=== PATIENT | female | born 1995 | race Caucasian/White ===

== ENCOUNTER 2016-10-31 20:28 | Emergency (ER) | payer BC ==
[~2016-10-31] VITALS: Ht 154.9 cm; Wt 68.5 kg
[~2016-10-31 20:28] MED LIST: ALBU1AER9 INH; MONT1TAB5 PO; NORE-37 PO
[2016-10-31 20:31] VITALS: Ht 154.9 cm; Wt 68.5 kg
[2016-10-31] MEDS ORDERED: ALBUT/IPRATROP 3MG/0.5MG NEB 3 ML VIAL INH STA (20:43)
[2016-10-31] MEDS ORDERED: DEXAMETHASONE SOD INJ 10 MG/ML VIAL IV ONE (20:45)
[2016-10-31] MEDS ORDERED: OPTIRAY 320 IV PRN (21:00)
[2016-10-31] MEDS ORDERED: CLX/20 PO (21:01)
[2016-10-31 21:11] VITALS: O2SAT 100
[2016-10-31 21:20] LABS: BASO % 0.3 %; BASO ABS # 0.02 K/uL (0-0.2); COMPLETE YES; EOS % 6.7 %; HEMATOCRIT 39.6 % (37-47); IG% 0.1 %; LYMPH % 37.9 %; LYMPH ABS # 2.72 K/uL (1.2-3.4); MEAN CELL VOLUME 86.1 fL (80-100); MEAN CORPUSCULAR HGB CONC 34.8 g/dl (32-36); MEAN PLATELET VOLUME 9.7 fL (7.4-10.4); MONO % 11.6 %; NEUT % 43.4 %; PLATELET COUNT 286 K/uL (130-400); WHITE BLOOD COUNT 7.18 K/uL (4.8-10.8)
[2016-10-31 21:40] LABS: ALT/SGPT 18 U/L (12-78); BLOOD UREA NITROGEN 12 mg/dl (7-18); BUN/CREATININE RATIO 12.2 (10-20); CALCIUM 8.8 mg/dl (8.5-10.1); CARBON DIOXIDE 26 mmol/L (21-32); CHLORIDE 107 mmol/L (98-107); GLUCOSE 75 mg/dl (70-99); POTASSIUM 3.7 mmol/L (3.5-5.1); SODIUM 142 mmol/L (136-145)
[2016-10-31 21:45] LABS: ALKALINE PHOSPHATASE 55 U/L (45-117); AST/SGOT 12 U/L (15-37); CKMB/CK RATIO 1.7 (0-3.0)
[2016-10-31 21:48] LABS: PREG INTERNAL NEGATIVE QC NEG CLEAR BACKGROUND; PREG INTERNAL POSITIVE QC POS CONTROL LINE
--- NOTE | 2016-10-31 22:11 | DIAGNOSTIC IMAGING REPORT ---
CT ANGIOGRAM OF THE CHEST CLINICAL HISTORY: Chest pain and shortness of breath COMPARISON STUDY: Chest x-ray dated 10/24/2014 TECHNIQUE: Following the IV administration of 93 mL of Optiray-320, CT angiogram of the thorax was performed from the thoracic inlet to the lung bases utilizing the pulmonary embolus protocol. Images are reviewed in the axial, sagittal, and coronal planes. IV contrast was administered without complication. MIP imaging was performed. CT DOSE: 175.22 mGy.cm FINDINGS: No pathologically enlarged axillary mediastinal or hilar lymph nodes were visualized. There was no evidence of thoracic aortic dilatation. There were no pulmonary artery filling defects to indicate acute pulmonary embolism. No pleural effusions are visualized. There is slight mosaic attenuation of the lower lobe suggesting an element of air trapping. There are no areas of consolidation suspicious for pneumonia. IMPRESSION: 1. No CT evidence of acute pulmonary embolism 2. Areas of mosaic attenuation within the lower lobes suggesting air trapping Electronically signed by: Shan Carroll M.D. 10/31/2016 10:09 PM Dictated Date/Time: 10/31/2016 10:06 PM
[2016-10-31] MEDS ORDERED: PRED50TA PO (22:38)
[2016-10-31 22:57] VITALS: BP 119/60; PULSE 81; TEMP 36.7; O2SAT 100
--- NOTE | 2016-10-31 23:11 | EMERGENCY ROOM VISIT NOTE ---
History Report prepared by Juan: Juvencio Jacobsen Under the Supervision of: Dr. Kirt Barcenas M.D. First contact with patient: 20:34 Chief Complaint: RESPIRATORY PROBLEMS Stated Complaint: MOUTH SORENESS, SOB, COUGHING, BURNING IN CHEST History of Present Illness The patient is a 20 year old female who presents to the Emergency Room with complaints of persistent respiratory problems beginning a few weeks ago. She notes having a history of asthma, but that her current respiratory problems do not feel like her asthma. She was seen at [facility] 3 times and was told it was a flare up of her asthma. She has been treated with a z-pack and a prednisone taper. She notes they did not find anything by x-ray. The patient notes she has a nebulizer at home. She notes having jaw pain, a sore throat, chest pains with a cough, wheezing and adds that she is tasting blood with her cough. The patient has had pneumonia before, and notes that the chest pain and other symptoms is similar to when she has had pneumonia before. The patient has had a history of a tonsillectomy and wisdom teeth removal. Her last menstrual period was normal and was 3 weeks ago. She takes Citalopram and is on control. Pt denies LOC, headache, fevers, chills, diaphoresis, visual changes, neck pain , nausea, vomiting, abdominal pain, back pain, melena, hematochezia, urinary symptoms, numbness, weakness, lymphadenopathy, rash, or other complaints. Review of Systems See HPI for pertinent positives and negatives. A total of ten systems were reviewed and were otherwise negative. Past Medical & Surgical Medical Problems: (1) Asthma Surgical Problems: (1) Hx of wisdom tooth extraction Family History Cancer Diabetes mellitus Heart disease Hypertension Kidney disease or stones Lung disease Seizures Social History Smoking Status: Never Smoker Alcohol Use: none Marital Status: single Housing Status: lives with family Occupation Status: student Current/Historical Medications Scheduled Control Pills ( Control Pills), 1 TAB PO DAILY Citalopram (Citalopram Hydrobromide), 10 MG PO DAILY Mometasone Furoate-Formoterol (Dulera 100/5 Mcg), 1 AER INH BID Montelukast Sodium (Montelukast Sodium), 10 MG PO DAILY Prednisone (Prednisone), 50 MG PO DAILY Scheduled PRN Albuterol (Proair Hfa), 2 PUFF INH Q4 PRN for Shortness of Breath Allergies Coded Allergies: Sumatriptan (Verified Allergy, Severe, LIGHT HEADED/TIGHT THROAT, 10/31/16) Physical Exam Vital Signs Date Time Temp Pulse Resp B/P Pulse Ox O2 Delivery O2 Flow Rate FiO2 10/31/16 21:31 119/60 10/31/16 21:28 81 14 100 10/31/16 21:17 83 10/31/16 21:13 78 20 131/65 100 Room Air 10/31/16 21:11 100 Room Air 10/31/16 21:11 100 Room Air 10/31/16 21:10 131/65 10/31/16 20:40 100 Room Air 10/31/16 20:31 36.7 73 20 121/80 100 Room Air Physical Exam GENERAL: Awake, alert, well-appearing, in no distress HENT: Normocephalic, atraumatic. Oropharynx unremarkable. EYES: Normal conjunctiva. Sclera non-icteric. NECK: Supple. No nuchal rigidity. FROM. No JVD. RESPIRATORY: Expiratory wheezing. Breath sounds equal. CARDIAC: Regular rate, normal rhythm. Extremities warm and well perfused. Pulses equal. ABDOMEN: Soft, non-distended. No tenderness to palpation. No rebound or guarding. No masses. RECTAL: Deferred. MUSCULOSKELETAL: Chest examination reveals no tenderness. The back is symmetrical on inspection without obvious abnormality. There is no CVA tenderness to palpation. No joint edema. LOWER EXTREMITIES: Calves are equal size bilaterally and non-tender. No edema. No discoloration. NEURO: Normal sensorium. No sensory or motor deficits noted. SKIN: No rash or jaundice noted. Medical Decision & Procedures ER Provider Diagnostic Interpretation: Radiology results as stated below per my review and radiologist interpretation CT ANGIOGRAM OF THE CHEST CLINICAL HISTORY: Chest pain and shortness of breath COMPARISON STUDY: Chest x-ray dated 10/24/2014 TECHNIQUE: Following the IV administration of 93 mL of Optiray-320, CT angiogram of the thorax was performed from the thoracic inlet to the lung bases utilizing the pulmonary embolus protocol. Images are reviewed in the axial, sagittal, and coronal planes. IV contrast was administered without complication. MIP imaging was performed. CT DOSE: 175.22 mGy.cm FINDINGS: No pathologically enlarged axillary mediastinal or hilar lymph nodes were visualized. There was no evidence of thoracic aortic dilatation. There were no pulmonary artery filling defects to indicate acute pulmonary embolism. No pleural effusions are visualized. There is slight mosaic attenuation of the lower lobe suggesting an element of air trapping. There are no areas of consolidation suspicious for pneumonia. IMPRESSION: 1. No CT evidence of acute pulmonary embolism 2. Areas of mosaic attenuation within the lower lobes suggesting air trapping Electronically signed by: Shan Carroll M.D. 10/31/2016 10:09 PM Dictated Date/Time: 10/31/2016 10:06 PM Laboratory Results 10/31/16 21:00 Red Blood Count 4.60, Mean Corpuscular Volume 86.1, Mean Corpuscular Hemoglobin 30.0, Mean Corpuscular Hemoglobin Concent 34.8, Mean Platelet Volume 9.7, Neutrophils (%) (Auto) 43.4, Lymphocytes (%) (Auto) 37.9, Monocytes (%) (Auto) 11.6, Eosinophils (%) (Auto) 6.7, Basophils (%) (Auto) 0.3, Neutrophils # (Auto ) 3.12, Lymphocytes # (Auto) 2.72, Monocytes # (Auto) 0.83, Eosinophils # (Auto ) 0.48, Basophils # (Auto) 0.02 10/31/16 21:00 Test 10/31/16 21:00 White Blood Count 7.18 K/uL (4.8-10.8) Red Blood Count 4.60 M/uL (4.2-5.4) Hemoglobin 13.8 g/dL (12.0-16.0) Hematocrit 39.6 % (37-47) Mean Corpuscular Volume 86.1 fL (80-100) Mean Corpuscular Hemoglobin 30.0 pg (25-34) Mean Corpuscular Hemoglobin Concent 34.8 g/dl (32-36) Platelet Count 286 K/uL (130-400) Mean Platelet Volume 9.7 fL (7.4-10.4) Neutrophils (%) (Auto) 43.4 % Lymphocytes (%) (Auto) 37.9 % Monocytes (%) (Auto) 11.6 % Eosinophils (%) (Auto) 6.7 % Basophils (%) (Auto) 0.3 % Neutrophils # (Auto) 3.12 K/uL (1.4-6.5) Lymphocytes # (Auto) 2.72 K/uL (1.2-3.4) Monocytes # (Auto) 0.83 K/uL (0.11-0.59) Eosinophils # (Auto) 0.48 K/uL (0-0.5) Basophils # (Auto) 0.02 K/uL (0-0.2) RDW Standard Deviation 40.2 fL (36.4-46.3) RDW Coefficient of Variation 12.7 % (11.5-14.5) Immature Granulocyte % (Auto) 0.1 % Immature Granulocyte # (Auto) 0.01 K/uL (0.00-0.02) Anion Gap 9.0 mmol/L (3-11) Est Creatinine Clear Calc Drug Dose 79.4 ml/min Estimated GFR () 93.9 Estimated GFR (Non- 81.0 BUN/Creatinine Ratio 12.2 (10-20) Calcium Level 8.8 mg/dl (8.5-10.1) Total Bilirubin 0.3 mg/dl (0.2-1) Direct Bilirubin < 0.1 mg/dl (0-0.2) Aspartate Amino Transf (AST/SGOT) 12 U/L (15-37) Alanine Aminotransferase (ALT/SGPT) 18 U/L (12-78) Alkaline Phosphatase 55 U/L (45-117) Total Creatine Kinase 54 U/L (26-192) Creatine Kinase MB 0.9 ng/ml (0.5-3.6) Creatine Kinase MB Ratio 1.7 (0-3.0) Troponin I < 0.015 ng/ml (0-0.045) Total Protein 7.1 gm/dl (6.4-8.2) Albumin 3.7 gm/dl (3.4-5.0) Lipase 234 U/L (73-393) Human Chorionic Gonadotropin, Qual NEG (NEG) Laboratory results reviewed by me Medications Administered Medications (Trade) Dose Ordered Sig/Radha Route Start Time Stop Time Status Last Admin Dose Admin Albuterol/ Ipratropium (Duoneb) 3 ml NOW STAT INH 10/31/16 20:43 10/31/16 20:45 DC 10/31/16 21:07 3 ML Dexamethasone Sodium Phosphate (Decadron Inj) 10 mg NOW ONCE IV 10/31/16 20:45 10/31/16 20:46 DC 10/31/16 21:07 10 MG ECG Indication: SOB/dyspnea Rate (beats per minute): 69 Rhythm: sinus rhythm (with short TN) Findings: no acute ischemic change, no ectopy, other (no pericarditis) ED Course 2038: The patient was evaluated in room B8. A complete history and physical exam was performed. 2042: Ordered Duoneb 3 ml INH. 2044: Ordered Decadron Inj 10 mg IV. 2238: I reassessed the patient and she is feeling better. 2354: I reevaluated the patient. Discussed results and discharge instructions: She verbalized understanding and agreement. The patient is ready for discharge. Medical Decision Triage Nursing notes reviewed. The patient's presentation and history were concerning for respiratory issues. Etiologies such as pneumonia, COPD, reactive airway disease, CHF, cardiac ischemia, pulmonary embolism, pneumothorax, musculoskeletal, infections, gastrointestinal, as well as others were entertained. The patient was evaluated. She has a long history of reactive air disease. She was wheezing. She is on control. She states this felt different than her usual asthma. Due to concerns about possible PE the patient underwent CT imaging. She was treated with Decadron and a DuoNeb. She was feeling better with this. The study did not reveal any evidence of pulmonary embolism or dissection. She does have some air trapping noted on CT scan. She's had symptoms for many weeks I suspect that she has reactive airways that are triggered by an upper respiratory infection or possibly a pneumonia or influenza. The patient will be placed on steroids. She will use her inhalers or nebulizer regularly. Because she has had prolonged symptoms and has a long history of reactive airways without a joinery setter out currently she was referred. The patient will come back to emergency department if she worsens in any way. I gave my usual and customary discussion regarding this issue. By the evaluation outlined above other emergent etiologies such as those listed in the differential, as well as others, were deemed relatively unlikely. The patient was informed about the findings as listed above. All questions were answered and she was pleased with the treatment. Return instructions were outlined and the patient was discharged in stable condition. The patient was referred to pulmonology and her PCP for follow-up for a recheck of the current condition. The chart was completed utilizing [employer] voice recognition software. Grammatical errors, random word insertions, pronoun errors, and incomplete sentences are an occasional consequence of this system due to software limitations, ambient noise, and hardware issues. Any formal questions or concerns about the content, text, or information contained within the body of this dictation should be directly addressed to the physician for clarification. Impression Primary Impression: Reactive airway disease Additional Impression: Chest pain varying with breathing Scribe Attestation The scribe's documentation has been prepared under my direction and personally reviewed by me in its entirety. I confirm that the note above accurately reflects all work, treatment, procedures, and medical decision making performed by me. Departure Information Dispostion Home / Self-Care Prescriptions Prednisone (Prednisone) 50 Mg Tab 50 MG PO DAILY, #4 TAB Prov: Kirt Barcenas MD 10/31/16 Referrals No Doctor, Assigned (PCP) Patient Instructions My [facility] Additional Instructions ASTHMA INSTRUCTIONS: Albuterol Inhaler or nebulizer: Take 2 puffs or one treatment four times daily for five days, then as needed. Prednisone 50mg: Once daily until the prescription is finished. It is best to take this earlier in the day as some patients note occasional difficulty falling asleep when taken in the late evening. Continue other medication. Acetaminophen(Tylenol) may be used for fever or pain. Use 1000mg every six hours as needed. Avoid using more than 4000mg in a 24 hour period. (AND/OR) Ibuprofen(Motrin, Advil) may be used for fever or pain. Use 600mg every six hours as needed. Take with food. Avoid using more than 2400mg in a 24 hour period. Do not use 2400mg per day for more than three consecutive days without physician direction. Prolonged inappropriate use can lead to stomach upset or ulcers. Rest and drink plenty of fluids. Avoid smoke/smoking, fumes, dust, or any triggers in the past that may have affected your breathing. Continue current medications. Return to the ER for chest pain, difficulty breathing, fevers, vomiting, worsening of your condition, or as needed. Follow up with your primary physician this coming week for a recheck of your current condition. Call Dr. El's office tomorrow for a follow-up appointment. If you are unable to get an appointment call back to the emergency department and speak with the embedded case manager. Problem Qualifiers
[2017-03-20] MEDS ORDERED: MOME100A INH (09:51)
[2017-03-20] MEDS ORDERED: FEXO1TAB49 PO (13:52)
== END 2016-10-31 22:58 | disposition home or self-care (01) ==
LOC: C.EDB 20:30
DX: J45.909 Unspecified asthma, uncomplicated (principal); R07.9 Chest pain, unspecified; R06.00 Dyspnea, unspecified; Z79.899 Other long term (current) drug therapy; Z88.8 Allergy status to other drugs, medicaments and biological substances; Z80.9 Family history of malignant neoplasm, unspecified; Z83.3 Family history of diabetes mellitus; Z82.49 Family history of ischemic heart disease and other diseases of the circulatory system; Z84.1 Family history of disorders of kidney and ureter; Z82.0 Family history of epilepsy and other diseases of the nervous system

== ENCOUNTER → 2016-11-21 | Outpatient (CLI) | payer BC ==
[~2016-11-21] MED LIST changes: +BCPILLS PO; +CITA40TA4 PO; +CLX/20 PO; +FEXO1TAB49 PO; +HYDR-5688 PO; +MOME100A INH; -NORE-37 PO; +PRED50TA PO; +PRVHFAIN INH
--- NOTE | 2016-11-22 22:11 | PULMONARY FUNCTION TEST ---
Spirometry: Within normal limits. Total lung capacity: Within normal limits. Diffusion capacity: Within normal limits. INTERPRETATION: Normal pulmonary function studies.
== END | disposition home or self-care (01) ==
LOC: C.RC 10:11
PROVIDERS: ATTEND Physician Assistant
DX: J45.40 Moderate persistent asthma, uncomplicated (principal)

== ENCOUNTER 2017-03-14 12:55 | Emergency (ER) | payer OTHER, BC ==
[~2017-03-14] VITALS: Ht 154.9 cm; Wt 69.8 kg
[2017-03-14 12:52] VITALS: TEMP 37; Ht 154.9 cm; Wt 69.8 kg
[~2017-03-14 12:55] MED LIST changes: -BCPILLS PO; -CITA40TA4 PO; -FEXO1TAB49 PO; -HYDR-5688 PO; -MOME100A INH; -PRVHFAIN INH
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
[2017-03-14 14:28] VITALS: BP 127/72; PULSE 65; O2SAT 98
[2017-03-20] MEDS ORDERED: MOME100A INH (09:51)
[2017-03-20] MEDS ORDERED: FEXO1TAB49 PO (13:52)
== END 2017-03-14 14:29 | disposition home or self-care (01) ==
LOC: EDBD 12:55 → C.EDC 12:57
DX: S09.90XA Unspecified injury of head, initial encounter (principal); M54.2 Cervicalgia; R20.2 Paresthesia of skin; J45.909 Unspecified asthma, uncomplicated; Z79.3 Long term (current) use of hormonal contraceptives; Z79.899 Other long term (current) drug therapy; Z87.828 Personal history of other (healed) physical injury and trauma; Z82.0 Family history of epilepsy and other diseases of the nervous system; Z82.49 Family history of ischemic heart disease and other diseases of the circulatory system; Z83.3 Family history of diabetes mellitus; Z83.6 Family history of other diseases of the respiratory system; Z84.1 Family history of disorders of kidney and ureter; V43.52XA Car driver injured in collision with other type car in traffic accident, initial encounter

== ENCOUNTER 2017-03-20 16:27 | Emergency (ER) | payer BC, OTHER ==
[~2017-03-20] VITALS: Ht 154.9 cm; Wt 67.4 kg
[~2017-03-20 16:27] MED LIST changes: +FEXO1TAB49 PO; +MOME100A INH; -PRED50TA PO
[2017-03-20 16:31] VITALS: TEMP 36.7; Ht 154.9 cm; Wt 67.4 kg
[2017-03-20] MEDS ORDERED: ONDANSETRON 4MG OD TAB PO STA (16:56)
[2017-03-20] MEDS ORDERED: OXYCODONE/ACETAMINOPHEN 5-325 TAB PO STA (16:56)
[2017-03-20] MEDS ORDERED: PRVHFAIN INH (17:13)
[2017-03-20] MEDS ORDERED: CITA40TA4 PO (17:13)
[2017-03-20] MEDS ORDERED: MONT1TAB5 PO (17:13)
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
[2017-03-20] MEDS ORDERED: HYDR-5688 PO (18:24)
[2017-03-20 18:36] VITALS: BP 124/63; PULSE 61; O2SAT 98
[2017-03-20] MEDS ORDERED: BCPILLS PO (21:01)
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
== END 2017-03-20 18:37 | disposition home or self-care (01) ==
LOC: C.EDB 16:29 → C.EDD 18:37
DX: S06.0X9A Concussion with loss of consciousness of unspecified duration, initial encounter (principal); V49.9XXA Car occupant (driver) (passenger) injured in unspecified traffic accident, initial encounter; J45.909 Unspecified asthma, uncomplicated; Z87.01 Personal history of pneumonia (recurrent)

== ENCOUNTER 2017-10-16 19:47 | Inpatient (IN) | payer OTHER ==
[~2017-10-16] VITALS: Ht 154.9 cm; Wt 70.1 kg
[~2017-10-16 19:47] MED LIST changes: -ALBU1AER9 INH; +BCPILLS PO; +CITA40TA4 PO; -CLX/20 PO; +PRVHFAIN INH
[2017-10-16] MEDS ORDERED: LEVALBUTEROL 1.25MG/0.5ML NEB INH STA (20:12)
[2017-10-16] MEDS ORDERED: SODIUM CHLORIDE 0.9% 1000ML 1,000 ML IV STA (20:12)
--- NOTE | 2017-10-16 20:25 | DIAGNOSTIC IMAGING REPORT ---
CHEST ONE VIEW PORTABLE CLINICAL HISTORY: EVALUATE RESPIRATORY DISTRESS.DYSPNEA COMPARISON STUDY: 10/24/2014 FINDINGS: The bones soft tissues and hemidiaphragms are normal. The cardiomediastinal silhouette is normal. The lungs are clear. The pulmonary vasculature is normal. IMPRESSION: Negative chest. The above report was generated using voice recognition software. It may contain grammatical, syntax or spelling errors. Electronically signed by: Randall Worley M.D. 10/16/2017 8:24 PM Dictated Date/Time: 10/16/2017 8:24 PM
[2017-10-16 20:33] VITALS: PULSE 127; O2SAT 95
[2017-10-16 20:50] LABS: BASO ABS # 0.01 K/uL (0-0.2); HEMATOCRIT 43.1 % (37-47); HEMOGLOBIN 15.2 g/dL (12.0-16.0); IG# 0.06 K/uL (0.00-0.02); LYMPH % 5.2 %; LYMPH ABS # 1.07 K/uL (1.2-3.4); MEAN CELL VOLUME 87.4 fL (80-100); MEAN CORPUSCULAR HEMOGLOBIN 30.8 pg (25-34); MEAN CORPUSCULAR HGB CONC 35.3 g/dl (32-36); MEAN PLATELET VOLUME 9.8 fL (7.4-10.4); MONO % 1.7 %; MONO ABS # 0.36 K/uL (0.11-0.59); NEUT % 92.8 %; NEUT ABS # 19.25 K/uL (1.4-6.5); PLATELET COUNT 331 K/uL (130-400); RED CELL DISTRIBUTION WIDTH CV 12.8 % (11.5-14.5); RED CELL DISTRIBUTION WIDTH SD 41.1 fL (36.4-46.3); WHITE BLOOD COUNT 20.75 K/uL (4.8-10.8)
[2017-10-16 21:12] LABS: ALBUMIN 4.1 gm/dl (3.4-5.0); ALT/SGPT 24 U/L (12-78); BLOOD UREA NITROGEN 9 mg/dl (7-18); CALCIUM 9.5 mg/dl (8.5-10.1); CARBON DIOXIDE 25 mmol/L (21-32); CREATININE 0.92 mg/dl (0.60-1.20); GLUCOSE 124 mg/dl (70-99); SODIUM 136 mmol/L (136-145)
[2017-10-16 21:14] LABS: ALKALINE PHOSPHATASE 71 U/L (45-117)
[2017-10-16] MEDS ORDERED: PRED10TA PO (21:16)
[2017-10-16] MEDS ORDERED: ALBINS/ INH (21:16)
[2017-10-16 21:29] LABS: CKMB < 0.5 ng/ml (0.5-3.6)
[2017-10-16] MEDS ORDERED: IPRATROPIUM BROMIDE NEB SOLN 0.02% 2.5 ML VIAL INH ONE (21:30)
[2017-10-16] MEDS ORDERED: LEVALBUTEROL 1.25MG/0.5ML NEB INH ONE (21:30)
--- NOTE | 2017-10-16 21:57 | EMERGENCY ROOM VISIT NOTE ---
ED Visit Note First contact with patient: 20:02 Chief Complaint: Difficulty breathing. History of Present Illness: Ms. Mena is a 21-year-old white female who ambulates into the ED complaining of difficulty breathing. Historically patient reports she has a history of asthma, bronchitis and pneumonia. Patient reports she started developing symptoms last Friday, 10 days ago. Her symptoms at that time was a nonproductive cough and mild shortness of breath. 2 days after the onset of her symptoms she was seen at her PCPs office and was diagnosed with bronchitis and was placed on steroids and a Zithromax pack. She reports she had mild decrease in her symptoms until 2 days ago when they significantly worsened. She was seen at an urgent local urgent care center earlier this today in the morning hours and was placed on an increased dose of steroids. She reports she took the increase and noted some mild relief of her symptoms but once again the exacerbated this evening. Currently she is complaining of severe difficulty breathing and chest tightness. She places her chest tightness over the anterior chest. She rates this discomfort 9/10. Her pain is nonradiating. Her pain worsens with cough and deep inspiration. She is also noted that when she is sitting up right she has mild relief of her discomfort. She has not taken anything specifically for her chest discomfort for pain control. Associated with her pain she reports she is having difficulty breathing, she is wheezing, she has sensations of heart racing, she has sensations of fever feeling hot and cold, sinus and nasal congestion. Additionally she reports her last breathing treatment was 4:00 this morning and received no relief so she had not taken any additional treatments throughout the day. She denies headache, dizziness, lightheadedness, hemoptysis, previous clots, claudication, cramping, recent surgery/inactivity/extended travel, abdominal pain, nausea, vomiting. Review of Systems: As noted above in history of present illness. All body systems were reviewed and found to be negative as noted above. Past Medical History: As previously noted, status post tonsillectomy, adenoidectomy and right shoulder surgery. Current Medications: Medications Dose Route/Sig Max Daily Dose Days Date Category Proventil 0.083% 2.5MG/3ML (Albuterol Sulf) 2.5 Mg/3 Ml Nebu 2.5 Mg INH Q4 PRN 10/16/17 Reported Prednisone 10 Mg Tab 10 Mg PO TAPER UD 10/16/17 Reported Ventolin Hfa (Albuterol) 60 Puffs/5400 Mcg Aers 2 Puffs INH Q4H PRN 03/20/17 Reported Montelukast Sodium 10 Mg Tab 10 Mg PO HS 03/20/17 Reported Citalopram Hydrobromide 40 Mg Tab 40 Mg PO DAILY 03/20/17 Reported Salima Allergy (Fexofenadine Hcl) 180 Mg Tab 180 Mg PO DAILY 03/14/17 Reported Dulera 100/5 Mcg (Mometasone Furoate-Formoterol) 1 Aer Aer 1 Puff INH BID 10/19/14 Reported Allergies to Medications: Imitrex. Social History: Patient is currently employed; she feels safe in her home environment; she denies tobacco use and admits to social alcohol use. Physical Examination: Vital Signs: Date Time Temp Pulse Resp B/P (MAP) Pulse Ox O2 Delivery O2 Flow Rate FiO2 10/16/17 21:22 37.4 10/16/17 20:44 126 10/16/17 20:35 93 Nasal Cannula 2.0 10/16/17 20:35 93 Nasal Cannula 2.0 10/16/17 20:33 127 18 95 Nasal Cannula 2.0 10/16/17 19:50 37.4 144 24 138/90 91 Nasal Cannula GENERAL: 21-year-old female in moderate respiratory distress, nontoxic-appearing , febrile, tachycardic and hypertensive. She is found sitting upright in a hospital bed with her head in extended position to assist with breathing. NEUROLOGICAL: Awake, alert and oriented to person, place and time. Answering questions appropriately and following commands. Good hand eye coordination. SKIN: Warm, dry and pink. No soft tissue eruptions or trauma noted. HEENT: Atraumatic and normocephalic. PERRLA. External ears are nontender. Auditory canals are pink and patent. Tympanic membrane was pearly [place] with normal light reflex. Sclera white and conjunctiva pink. No drainage from naris , but audible congestion. Oral cavity moist and pink. Airway is patent. Pharynx is nonerythematous or edematous. Speech normal and soft. No lymphadenopathy. No laryngeal tenderness. Trachea midline. No jugular venous distention. No auditory or ausculatory stridor. BACK: No tenderness over the bony spine. Full range of motion of the cervical spine. No CVA tenderness. THORAX: Lungs sounds are significantly decreased in all [place] with inspiratory and expiratory wheezing. Equal bilaterally with symmetrical chest wall. No rales or rhonchi. Mild to moderate tenderness over the anterior chest wall without bony deformity, bony crepitus, swelling, ecchymosis or subcutaneous air. Increased respiratory rate. No retractions noted. She is speaking in shortened sentences structure to assist with breathing. HEART: Tachycardic rate and rhythm. No gallops, rubs or murmurs are appreciated. PMI is not displaced. No lifts, heaves or thrills. ABDOMEN: Flat, soft and nontender. Positive bowel sounds in all quadrants. No guarding, rigidity or organomegaly. EXTREMITIES: Moves all extremities well on command and with purpose. All distal neurovascular statuses are intact and equal bilaterally. No calf tenderness or cords. ED Course: Patient is assessed as noted above. Patient's medication list was reviewed. Laboratory Testing: Test 10/16/17 20:35 10/16/17 21:15 10/16/17 21:23 Range/Units White Blood Count 20.75 4.8-10.8 K/uL Red Blood Count 4.93 4.2-5.4 M/uL Hemoglobin 15.2 12.0-16.0 g/dL Hematocrit 43.1 37-47 % Mean Corpuscular Volume 87.4 80-100 fL Mean Corpuscular Hemoglobin 30.8 25-34 pg Mean Corpuscular Hemoglobin Concent 35.3 32-36 g/dl Platelet Count 331 130-400 K/uL Mean Platelet Volume 9.8 7.4-10.4 fL Neutrophils (%) (Auto) 92.8 % Lymphocytes (%) (Auto) 5.2 % Monocytes (%) (Auto) 1.7 % Eosinophils (%) (Auto) 0.0 % Basophils (%) (Auto) 0.0 % Neutrophils # (Auto) 19.25 1.4-6.5 K/uL Lymphocytes # (Auto) 1.07 1.2-3.4 K/uL Monocytes # (Auto) 0.36 0.11-0.59 K/uL Eosinophils # (Auto) 0.00 0-0.5 K/uL Basophils # (Auto) 0.01 0-0.2 K/uL RDW Standard Deviation 41.1 36.4-46.3 fL RDW Coefficient of Variation 12.8 11.5-14.5 % Immature Granulocyte % (Auto) 0.3 % Immature Granulocyte # (Auto) 0.06 0.00-0.02 K/uL D-Dimer 330 0-500 ug/L FEU Sodium Level 136 136-145 mmol/L Potassium Level 3.5-5.1 mmol/L Chloride Level 104 98-107 mmol/L Carbon Dioxide Level 25 21-32 mmol/L Anion Gap 7.0 3-11 mmol/L Blood Urea Nitrogen 9 7-18 mg/dl Creatinine 0.92 0.60-1.20 mg/dl Est Creatinine Clear Calc Drug Dose 86.5 ml/min Estimated GFR () 103.2 Estimated GFR (Non- 89.0 BUN/Creatinine Ratio 9.7 10-20 Random Glucose 124 70-99 mg/dl Calcium Level 9.5 8.5-10.1 mg/dl Total Bilirubin 0.5 0.2-1 mg/dl Aspartate Amino Transf (AST/SGOT) 15-37 U/L Alanine Aminotransferase (ALT/SGPT) 24 12-78 U/L Alkaline Phosphatase 71 45-117 U/L Total Creatine Kinase 26-192 U/L Creatine Kinase MB < 0.5 0.5-3.6 ng/ml Creatine Kinase MB Ratio 0-3.0 Troponin I < 0.015 0-0.045 ng/ml Total Protein 8.0 6.4-8.2 gm/dl Albumin 4.1 3.4-5.0 gm/dl Globulin 3.9 2.5-4.0 gm/dl Albumin/Globulin Ratio 1.1 0.9-2 EKG: Was read by myself and reviewed with Dr. Mg; shows sinus tachycardia with a ventricular rate of 127 bpm. T-wave changes with inversion and flattening in the inferior leads. This was compared to her previous from October 2016 and the inferior changes noted above are new from that recording. Chest X-Rays: Were read by myself and the radiologist and showing no acute infiltrates, effusions or pneumothorax. Normal heart silhouette and bony anatomy. Patient was hydrated with normal saline and given a Xopenex nebulizer treatment 1.25 mg/0.5 ml; patient was offered pain medications and refused. Patient was reassessed after her breathing treatment and she had improved sentence structure, her head was much more relaxed and she was not sitting both upright. On listening to her lungs she had a significant increase in air movement but still was having inspiratory and expiratory wheezing. Patient was then ordered an hour long Xopenex breathing treatment. Patient was reassessed multiple times during her stay in the emergency department. Patient's case was reviewed with Dr. Mg; we agreed on diagnostic approach , treatment, disposition and plan. Patient's case was reviewed with case management and Ms. Mavis White PA-C, hospitalist, for medical observation/admission. Patient was educated about today's findings. Clinical Impression: Acute asthma exacerbation. Decision-Making: Initially my differential diagnosis I considered asthma exacerbation, pneumonia, pulmonary embolism, acute coronary syndrome, pericarditis, myocarditis, pneumothorax and other causes. Disposition and Plan: Please see Ms. White's notes and orders for final disposition and plan.
[2017-10-16] MEDS ORDERED: ONDANSETRON INJ 2 MG/ML 2 ML VIAL IV PRN (22:00)
[2017-10-16] MEDS ORDERED: SODIUM CHLORIDE 0.9% 1000ML 1,000 ML IV SCH (22:00)
[2017-10-16] MEDS ORDERED: ACETAMINOPHEN 325 MG TAB PO PRN (22:00)
[2017-10-16] MEDS ORDERED: ICU PROTOCOL FOR HYPERGLYCEMIA PRN ×2 (22:00→22:30)
[2017-10-16] MEDS ORDERED: AZITHROMYCIN IV 500 MG in DEXTROSE 5% 250ML 250 ML IV STA (22:04)
[2017-10-16 22:10] LABS: CKMB 0.5 ng/ml (0.5-3.6)
[2017-10-16] MEDS ORDERED: METHYLPREDNISOLONE 125 MG VIAL IV STA (22:11)
[2017-10-16] MEDS ORDERED: METHYLPREDNISOLONE IV 125 MG in SYRINGE 0 ML IV ONE (22:15)
--- NOTE | 2017-10-16 22:19 | History and Physical ---
History & Physical Date & Time of Service: Oct 16, 2017 ~ 21:45 Chief Complaint: Shortness of breath Primary Care Physician: Arline Tomas D.O. History of Present Illness Patient seen and examined with Dr. Mercado. 21-year-old female who presents to the ER when shortness of breath. Patient reports her symptoms have been going on for approximately the past 2 weeks. She was seen in the outpatient clinic last week and placed on Augmentin and prednisone taper. She was also given a prescription for Symbicort and instructed to stop her Dulera however patient reports that Symbicort was too expensive. Patient reports she was initially improving with the Augmentin and prednisone. However a few days ago the symptoms returned. She reports progressive shortness of breath and dry, harsh cough. She has chest and back pain with coughing and with taking a deep breath. She has had low-grade fevers. She denies abdominal pain, nausea, vomiting, diarrhea. No lightheadedness, dizziness, diaphoresis, or syncopal events. She denies urinary symptoms. In the ED, patient presented with tachycardia in the 130s and visible shortness of breath and audible wheezing. Chest x-ray does not show any pneumonia. WBC 20K. Patient was given IVF and nebulizer treatment. Past Medical/Surgical History Medical Problems: (1) Asthma Status: Chronic Surgical Problems: (1) H/O shoulder surgery Status: Chronic (2) Hx of tonsillectomy Status: Chronic (3) Hx of wisdom tooth extraction Status: Chronic Family History FH: pulmonary embolism FATHER Hypertension MOTHER Social History Smoking Status: Never Smoker Alcohol Use: occasionally Immunizations History of Tetanus Vaccine?: Yes Tetanus Immunization Date: Jul 08, 2012 Allergies Coded Allergies: Sumatriptan (Verified Allergy, Severe, LIGHT HEADED/TIGHT THROAT, 03/14/17) Home Medications Scheduled Citalopram Hydrobromide (Citalopram Hydrobromide), 40 MG PO DAILY Fexofenadine Hcl (Salima Allergy), 180 MG PO DAILY Mometasone Furoate-Formoterol (Dulera 100/5 Mcg), 1 PUFF INH BID Montelukast Sodium (Montelukast Sodium), 10 MG PO HS Prednisone Tab (Prednisone), 10 MG PO TAPER UD Scheduled PRN Albuterol (Ventolin Hfa), 2 PUFFS INH Q4H PRN for Shortness of Breath Albuterol Sulf (Proventil 0.083% 2.5MG/3ML), 2.5 MG INH Q4 PRN for SOB/Wheezing Review of Systems ROS per HPI, all other systems reviewed and negative Physical Exam Vital Signs Date Time Temp Pulse Resp B/P (MAP) Pulse Ox O2 Delivery O2 Flow Rate FiO2 10/16/17 21:44 135 18 152/80 95 Nebulizer 10/16/17 21:22 37.4 10/16/17 20:44 126 10/16/17 20:35 93 Nasal Cannula 2.0 10/16/17 20:35 93 Nasal Cannula 2.0 10/16/17 20:33 127 18 95 Nasal Cannula 2.0 10/16/17 19:50 37.4 144 24 138/90 91 Nasal Cannula Please refer to Dr. Mercado's addendum for physical exam Diagnostics Laboratory Results Results Past 24 Hours Test 10/16/17 20:35 10/16/17 21:15 10/16/17 21:23 Range/Units White Blood Count 20.75 4.8-10.8 K/uL Red Blood Count 4.93 4.2-5.4 M/uL Hemoglobin 15.2 12.0-16.0 g/dL Hematocrit 43.1 37-47 % Mean Corpuscular Volume 87.4 80-100 fL Mean Corpuscular Hemoglobin 30.8 25-34 pg Mean Corpuscular Hemoglobin Concent 35.3 32-36 g/dl Platelet Count 331 130-400 K/uL Mean Platelet Volume 9.8 7.4-10.4 fL Neutrophils (%) (Auto) 92.8 % Lymphocytes (%) (Auto) 5.2 % Monocytes (%) (Auto) 1.7 % Eosinophils (%) (Auto) 0.0 % Basophils (%) (Auto) 0.0 % Neutrophils # (Auto) 19.25 1.4-6.5 K/uL Lymphocytes # (Auto) 1.07 1.2-3.4 K/uL Monocytes # (Auto) 0.36 0.11-0.59 K/uL Eosinophils # (Auto) 0.00 0-0.5 K/uL Basophils # (Auto) 0.01 0-0.2 K/uL RDW Standard Deviation 41.1 36.4-46.3 fL RDW Coefficient of Variation 12.8 11.5-14.5 % Immature Granulocyte % (Auto) 0.3 % Immature Granulocyte # (Auto) 0.06 0.00-0.02 K/uL D-Dimer 330 0-500 ug/L FEU Sodium Level 136 136-145 mmol/L Potassium Level 3.5-5.1 mmol/L Chloride Level 104 98-107 mmol/L Carbon Dioxide Level 25 21-32 mmol/L Anion Gap 7.0 3-11 mmol/L Blood Urea Nitrogen 9 7-18 mg/dl Creatinine 0.92 0.60-1.20 mg/dl Est Creatinine Clear Calc Drug Dose 86.5 ml/min Estimated GFR () 103.2 Estimated GFR (Non- 89.0 BUN/Creatinine Ratio 9.7 10-20 Random Glucose 124 70-99 mg/dl Calcium Level 9.5 8.5-10.1 mg/dl Total Bilirubin 0.5 0.2-1 mg/dl Aspartate Amino Transf (AST/SGOT) 15-37 U/L Alanine Aminotransferase (ALT/SGPT) 24 12-78 U/L Alkaline Phosphatase 71 45-117 U/L Total Creatine Kinase 26-192 U/L Creatine Kinase MB < 0.5 0.5-3.6 ng/ml Creatine Kinase MB Ratio 0-3.0 Troponin I < 0.015 0-0.045 ng/ml Total Protein 8.0 6.4-8.2 gm/dl Albumin 4.1 3.4-5.0 gm/dl Globulin 3.9 2.5-4.0 gm/dl Albumin/Globulin Ratio 1.1 0.9-2 Human Chorionic Gonadotropin, Qual NEG NEG Diagnostic Radiology CXR IMPRESSION: Negative chest. Impression Assessment and Plan STATUS ASTHMATICUS -Admit to ICU -Patient presenting with increasing cough, shortness of breath, and wheezing; as an outpatient she was treated with Augmentin and prednisone taper -In the ED, patient tachycardic in mild respiratory distress with audible wheezing -Saturating well on 2 L oxygen -Check ABG -Check influenza swab -Will give Solu-Medrol 125 mg IV now, and continue with Solu-Medrol 40 mg IV every 6 hours -Currently on Dulera as an outpatient, will hold for now -Xopenex around the clock due to tachycardia -Chest x-ray without infiltrate -Noted negative d-dimer -Empiric azithromycin and ceftriaxone -Case discussed with Zoran King PA-C EKG CHANGES -Inferior T-wave changes noted -Likely due to tachycardia -Will check echocardiogram DVT PROPHYLAXIS -SQ Lovenox DISPOSITION -In my clinical judgment this beneficiary meets acute admission criteria, established by [facility], that includes being hospitalized through two midnights. Attending addendum: Patient seen and examined care coordinated with Mavis RODRIGUES 21-year-old female with history of asthma, presents with cough shortness of breath, dyspnea on exertion Having ongoing nonproductive cough for for past few days Physical exam: General: Young female in moderate distress due to respiratory failure Unable to speak complete sentences HEENT: Sclera nonicteric, pupils reactive to light, EOMI Heart: Tachycardic Lungs: Diffuse wheeze in all lung [place], occasional rales Very poor air entry Abdomen: Soft nontender Neuro: Awake alert oriented 3, no focal neurological deficit Assessment plan: Status asthmaticus/acute respiratory failure: Presents with worsening of shortness of breath, failed outpatient treatment with prednisone and Zithromax At present tachypneic and tachycardic Chest x-ray does not show any infiltrate Patient will be admitted to intensive care unit for close monitoring of respiratory status/hemodynamics Case discussed with the ICU team , patient is evaluated by Zoran King PA-C in ER Patient will be given Solu-Medrol 125 mg IV 1 now Continue 40 mg IV every 6 hours [id number] neb treatment Empiric antibiotic with Rocephin and Zithromax Pulmonology consult requested Sinus tachycardia/EKG change Possible secondary to respiratory distress/hypoxia Repeat EKG ordered in the morning Resting echo CODE STATUS Full code Ирина Mercado MD Resuscitation Status VTE Prophylaxis Will order VTE Prophylaxis: Yes
[2017-10-16 22:21] VITALS: PULSE 135; O2SAT 94
[2017-10-16] MEDS ORDERED: CEFTRIAXONE SOD INJ 1 GM in DEXTROSE 5% ADD-VANTAGE 50ML 50 ML IV SCH (23:00)
[2017-10-16 23:01] VITALS: BP 144/78; PULSE 144; O2SAT 96
[2017-10-16 23:18] LABS: PHOSPHORUS 2.7 mg/dl (2.5-4.9)
[2017-10-16] MEDS: LEVALBUTEROL 1.25MG/0.5ML NEB INH SCH (23:39)
[2017-10-16] MEDS ORDERED: KETOROLAC TROMETHAMINE 15 MG/ML VIAL IV PRN (23:45)
[2017-10-16] MEDS ORDERED: NORMOSOL R 500 ML IV SCH (23:45)
[2017-10-16 23:52] VITALS: BP 173/84; PULSE 135; TEMP 36.4; O2SAT 95; Ht 154.9 cm; Wt 70.1 kg
[2017-10-17] VITALS (18 sets, daily range): BP systolic 117–142; BP diastolic 69–84; PULSE 104–124; TEMP 36.4–36.8; O2SAT 92–97
[2017-10-17] MEDS ORDERED: OPTIRAY 320 IV PRN
[2017-10-17 00:20] LABS: INFLUENZA A PCR Neg for Influ A (NEG); INFLUENZA B PCR Neg for Influ B (NEG)
[2017-10-17] MEDS: NORMOSOL R 1,000 ML IV SCH ×3 (00:43→23:38)
--- NOTE | 2017-10-17 01:06 | Critical Care Consultation ---
Critical Care Consultation Date of Consultation: Oct 17, 2017. Attending Physician: Ian Olivares MD Reason for Consultation: 21-year-old female with status asthmaticus in respiratory distress requiring aggressive pulmonary toilet and supplemental oxygen as well as close hemodynamic monitoring for significant tachycardia. History of Present Illness Patient is a 21-year-old female with a significant past medical history for asthma which has reportedly worsened over the past few years. The patient initially developed an upper respiratory infection approximately 3 weeks ago. She had been on a course of Augmentin with prednisone which ended early this week. Friday night, the patient reports a return of shortness of breath as well as associated cough and sore throat. Her breathing became so bad that she did not respond to her typical home inhalers. She was having difficulty speaking and drinking secondary to shortness of breath. Upon arrival in the emergency department, the patient was found to be moderately tachycardic with a heart rate in the 130s. She received an IV fluid bolus as well as hour-long neb and IV Solu-Medrol. I did evaluate the patient in the ER and she did have significant inspiratory and expiratory wheezes prior to receiving an hour-long neb. She was found to have a moderate leukocytosis of greater than 20,000. She is not anemic.There are no significant electrolyte derangements. Cardiac enzymes were not elevated 2. Chest x-ray demonstrated no acute consolidations. Upon arrival to the ICU, after receiving an hour-long neb, the patient is still tachycardic, however she is resting much more comfortably. On repeat exam, she is moving air and has less wheezing. She is still requiring supplemental oxygen and complaints of chest pain with deep inspiration. She rates her discomfort a 4/10. She does admit to feeling much better with her breathing at this point. Patient does not smoke. She does live in an old house with a stone basement. There is no other known exposures. She is around no smokers. She does not smoke cigarettes herself. 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 She denies any recent long distance travel. She is not on control. She is not a smoker. No known history of malignancy. There is a significant past family history of clotting disorders as her father has had multiple blood clots in the past without noted origin. No familial testing has been obtained per patient's understanding. Currently, the patient denies any headaches, dizziness, lightheadedness, palpitations, hemoptysis, nausea, vomiting, hematemesis, hematochezia, melena, hematuria, or dysuria. Patient lives with significant other. She denies any other illicit substance use. Past Medical/Surgical History Medical Problems: (1) Asthma Surgical Problems: (1) H/O shoulder surgery (2) Hx of tonsillectomy (3) Hx of wisdom tooth extraction Family History FH: pulmonary embolism FATHER Hypertension MOTHER as noted above. Significant for family history of thromboembolic disease. Social History Smoking Status: Never Smoker Smokeless Tobacco Use: No Alcohol Use: occasionally Drug Use: none Marital Status: in relationship Housing Status: lives with family Occupation Status: employed Allergies Coded Allergies: Sumatriptan (Verified Allergy, Severe, LIGHT HEADED/TIGHT THROAT, 03/14/17) Home Medications Scheduled Citalopram Hydrobromide (Citalopram Hydrobromide), 40 MG PO DAILY Fexofenadine Hcl (Salima Allergy), 180 MG PO DAILY Mometasone Furoate-Formoterol (Dulera 100/5 Mcg), 1 PUFF INH BID Montelukast Sodium (Montelukast Sodium), 10 MG PO HS Prednisone Tab (Prednisone), 10 MG PO TAPER UD Scheduled PRN Albuterol (Ventolin Hfa), 2 PUFFS INH Q4H PRN for Shortness of Breath Albuterol Sulf (Proventil 0.083% 2.5MG/3ML), 2.5 MG INH Q4 PRN for SOB/Wheezing Current Inpatient Medications Current Inpatient Medications Medications (Trade) Dose Ordered Sig/Radha Route Start Time Stop Time Status Last Admin Dose Admin Enoxaparin Sodium (Lovenox Inj) 40 mg Q24H SQ 10/17/17 09:00 11/16/17 08:59 Acetaminophen (Tylenol Tab) 650 mg Q4H PRN PO 10/16/17 22:00 11/15/17 21:59 Ondansetron HCl (Zofran Inj) 4 mg Q6H PRN IV 10/16/17 22:00 11/15/17 21:59 Miscellaneous Information (Icu Protocol For Hyperglycemia) 1 ea PRN PRN N/A 10/16/17 22:00 10/18/17 21:59 Levalbuterol (Xopenex 1.25MG/ 0.5ML Neb) 1.25 mg Q4R INH 10/17/17 00:00 11/16/17 00:00 Ceftriaxone Sodium 1 gm/ Dextrose 50 ml @ 100 mls/hr Q24H IV 10/16/17 23:00 10/23/17 22:59 Azithromycin 250 mg/Dextrose 252.5 ml @ 125 mls/hr DAILY@2200 IV 10/18/17 22:00 10/22/17 00:02 Citalopram Hydrobromide (celeXA TAB) 40 mg DAILY PO 10/17/17 09:00 11/16/17 08:59 Fexofenadine HCl (Salima Tab) 180 mg DAILY PO 10/17/17 09:00 11/16/17 08:59 Montelukast Sodium (Singulair Tab) 10 mg HS PO 10/17/17 21:00 11/16/17 20:59 Methylprednisolone Sodium Succinate 40 mg/Syringe 0.64 ml @ 1.5 mls/min Q6H IV 10/17/17 04:00 11/16/17 02:59 Miscellaneous Information (Icu Protocol For Hyperglycemia) 1 ea PRN PRN N/A 10/16/17 22:30 10/18/17 22:29 Parenteral Electrolyte Solution 1,000 ml @ 80 mls/hr [id number] IV 10/16/17 22:30 11/15/17 22:29 Levalbuterol (Xopenex 1.25MG/ 0.5ML Neb) 1.25 mg Q2R PRN INH 10/16/17 23:00 11/15/17 22:59 Ketorolac Tromethamine (Toradol Inj) 15 mg Q6H PRN IV 10/16/17 23:45 10/21/17 23:44 Ioversol (Optiray 320) 125 ml UD PRN IV 10/17/17 00:00 10/21/17 00:00 Review of Systems A complete 10-point Review of Systems was discussed with the patient, with pertinent positives and negatives listed in the History of Present Illness. All remaining Review of Systems questions can be considered negative unless otherwise specified. Physical Exam Date Time Temp Pulse Resp B/P (MAP) Pulse Ox O2 Delivery O2 Flow Rate FiO2 10/16/17 23:52 36.4 135 26 173/84 95 Nasal Cannula 2.0 10/16/17 22:40 141 24 125/81 95 10/16/17 22:21 135 25 94 Nasal Cannula 2.0 10/16/17 21:44 135 18 152/80 95 Nebulizer 10/16/17 21:22 37.4 10/16/17 20:44 126 10/16/17 20:35 93 Nasal Cannula 2.0 10/16/17 20:35 93 Nasal Cannula 2.0 10/16/17 20:33 127 18 95 Nasal Cannula 2.0 10/16/17 19:50 37.4 144 24 138/90 91 Nasal Cannula VITAL SIGNS - Vital signs and nursing notes were reviewed. GENERAL - 21-year-old female appearing her stated age who is in mild respiratory distress. Able to speak in short sentences, but does get winded. SKIN - Without rashes. HEAD - NC/AT. EYES - PERRL with EOMI bilaterally. Sclera anicteric. Palpebral conjunctiva pink and moist with no injection noted. EARS - No deformities of external structures noted on gross examination bilaterally. No pain elicited with palpation of the tragus bilaterally. External auditory canals without discharge or otorrhea. Tympanic membranes pearly [place] without retraction or bulging. No fluid or purulent material visualized behind the TM. Handle of malleus, umbo, cone of light, pars tensa/ flaccid all easily visualized. NOSE - Midline and without cyanosis. No epistaxis or purulent drainage noted. Septum midline without deviation or septal hematoma noted. MOUTH/OROPHARYNX - Without perioral cyanosis. Buccal mucosa pink and moist and without leukoplakia. Tongue midline with equal elevation of palate bilaterally. No tonsillar hypertrophy, erythema, or exudates noted. Good dentition noted. NECK - Neck with FROM. Supple to palpation. No lymphadenopathy noted. No nuchal rigidity. LUNGS - Tachypneic. Chest wall symmetric without accessory muscle use, intercostals retractions, or central cyanosis. Diffuse inspiratory and expiratory wheezed noted throughout all lung [place] w/ greatest appreciated in the RIGHT upper lobe [place]. No rales or rhonchi appreciated. CARDIAC - Tachycardic with S1/S2. No murmur, rubs, or gallops appreciated. ABDOMEN - Abdominal contour flat without pulsations or visible masses. BS normoactive all four quadrants. No tenderness, palpable masses, hepatosplenomegaly, or ascites noted. EXTREMITIES - No clubbing or peripheral cyanosis. No pretibial edema present. +3 /5 radial and dorsalis pedis pulses palpated throughout. +5/5 strength noted in UE/LE bilaterally. NEUROLOGIC - Cranial nerves II through XII grossly intact. Sensory intact to light touch throughout. PSYCH - A&Ox3 and cooperates fully with examiner. Pt is very pleasant and interacts well with examiner. Laboratory Results Last 24 Hours Test 10/16/17 20:35 10/16/17 21:23 10/16/17 22:45 10/16/17 22:49 White Blood Count 20.75 K/uL Red Blood Count 4.93 M/uL Hemoglobin 15.2 g/dL Hematocrit 43.1 % Mean Corpuscular Volume 87.4 fL Mean Corpuscular Hemoglobin 30.8 pg Mean Corpuscular Hemoglobin Concent 35.3 g/dl Platelet Count 331 K/uL Mean Platelet Volume 9.8 fL Neutrophils (%) (Auto) 92.8 % Lymphocytes (%) (Auto) 5.2 % Monocytes (%) (Auto) 1.7 % Eosinophils (%) (Auto) 0.0 % Basophils (%) (Auto) 0.0 % Neutrophils # (Auto) 19.25 K/uL Lymphocytes # (Auto) 1.07 K/uL Monocytes # (Auto) 0.36 K/uL Eosinophils # (Auto) 0.00 K/uL Basophils # (Auto) 0.01 K/uL RDW Standard Deviation 41.1 fL RDW Coefficient of Variation 12.8 % Immature Granulocyte % (Auto) 0.3 % Immature Granulocyte # (Auto) 0.06 K/uL D-Dimer 330 ug/L FEU Sodium Level 136 mmol/L Potassium Level mmol/L Chloride Level 104 mmol/L Carbon Dioxide Level 25 mmol/L Anion Gap 7.0 mmol/L Blood Urea Nitrogen 9 mg/dl Creatinine 0.92 mg/dl Est Creatinine Clear Calc Drug Dose 86.5 ml/min Estimated GFR () 103.2 Estimated GFR (Non- 89.0 BUN/Creatinine Ratio 9.7 Random Glucose 124 mg/dl Calcium Level 9.5 mg/dl Total Bilirubin 0.5 mg/dl Aspartate Amino Transf (AST/SGOT) U/L Alanine Aminotransferase (ALT/SGPT) 24 U/L Alkaline Phosphatase 71 U/L Total Creatine Kinase U/L 21 U/L Creatine Kinase MB < 0.5 ng/ml 0.5 ng/ml Creatine Kinase MB Ratio 2.4 Troponin I < 0.015 ng/ml < 0.015 ng/ml Total Protein 8.0 gm/dl Albumin 4.1 gm/dl Globulin 3.9 gm/dl Albumin/Globulin Ratio 1.1 Phosphorus Level 2.7 mg/dl Magnesium Level 1.8 mg/dl Thyroid Stimulating Hormone (TSH) 0.193 uIu/ml Free Thyroxine 1.10 ng/dl Human Chorionic Gonadotropin, Qual NEG Influenza Type A (RT-PCR) Neg for Influ A Influenza Type B (RT-PCR) Neg for Influ B Prothrombin Time 10.5 SECONDS Prothromb Time International Ratio 1.0 Lactic Acid Level 3.0 mmol/L Procalcitonin < 0.05 ng/ml Test 10/16/17 22:53 10/16/17 23:15 Potassium Level 3.5 mmol/L Blood Gas Sample Site R Radial Bedside Blood Gas pH (LAB) 7.53 Bedside Blood Gas pCO2 (LAB) 25 mmHg Bedside Blood Gas pO2 (LAB) 92 mmHg Bedside Blood Gas HCO3 (LAB) 21 meq/L Bedside Blood Gas Total CO2 22 mEq/l Bedside Blood Gas Base Excess (LAB) -2.0 meq/L Bedside Blood Gas O2 Saturation 98.0 % Micah Test Pass Oxygen Delivery Device Cannula Diagnostic Results Radiological imaging and reports were reviewed by myself. Radiologist's Interpretation as follows: CHEST ONE VIEW PORTABLE CLINICAL HISTORY: EVALUATE RESPIRATORY DISTRESS.DYSPNEA COMPARISON STUDY: 10/24/2014 FINDINGS: The bones soft tissues and hemidiaphragms are normal. The cardiomediastinal silhouette is normal. The lungs are clear. The pulmonary vasculature is normal. IMPRESSION: Negative chest. Radiological imaging and reports were reviewed by myself. Radiologist's Interpretation per [facility] as follows: CTA CHEST: No evidence of pulmonary embolus or aortic dissection. There is a moderate amount of pneumomediastinum. No evidence of pneumothorax or pleural effusion. Nonspecific groundglass opacity in the anterior segment of the right upper lobe may be infectious or inflammatory. Areas of mosaic attenuation in the lungs may represent air trapping or small airways disease. Visualized upper abdominal organs grossly unremarkable. Assessment & Plan (1) Status asthmaticus (2) Hypoxemia requiring supplemental oxygen (3) Dyspnea (4) Pleuritic chest pain (5) Tachycardia (6) Asthmatic bronchitis (7) Pneumomediastinum Reason Critically Ill: 21-year-old female with status asthmaticus in respiratory distress requiring aggressive pulmonary toilet and supplemental oxygen as well as close hemodynamic monitoring for significant tachycardia. Neuro - * CAM ICU: Negative * Pleuritic Chest Pain: * Tylenol PRN * Will add scheduled Toradol for antiinflammatory affects. * Patient has declined narcotic medications previously and would try to avoid if possible. Cardiac - * Tachycardia w/ concerns of EKG changes: * EKG in the ED shows T-wave inversions in Lead III most pronounced w/ flattening of T wave at II. Rate was 127 w/ QTc of 430. Likely related to rate. Unconcerned for worsening process at this point. Will trend EKGs as HR improves. * Will provided IVF as patient admittedly has had poor PO intake 2/2 SOB. * Monitor on Telemetry. Respiratory - * Status Asthmaticus: * Requiring O2 to sustain saturations. Titrate down as tolerated. * Aggressive pulmonary toilet. Great improvement of wheezing and tachypnea s/p hour long neb. * Continue w/ scheduled Xopenex/Atrovent nebs. * Consider Mag if wheezing were to return and become less respondent to nebs. * Steroids * Coverage w/ IV antibiotics in the acutely ill asthmatic patient. * Pleuritic Chest Pain: * Describes pain in her chest with radiation to her neck. Worse with deep inspiration and worse after coughing spell. This, coupled with significant family history of coagulopathies, prompted me to order CTA of the chest ( despite negative D-Dimer). * Will add Toradol for pain control. * Patient found to have moderate Pneumomediastinum on CT as well as RUL pneumonia. * Pneumomediastinum: * Likely s/s coughing r/t asthma exacerbation. * This explains patient's pleuritic CP. * Will provide supplemental O2. * Monitor closely for any acute respiratory/cardiovascular compromise signifying worsening pneumomediastinum vs pneumothorax vs pneumopericardium. * RIGHT Upper Lobe Pneumonia: * Currently on Rocephin/Azithromycin. * Will change to Zosyn in light of pneumomediastinum for better anaerobic coverage s/s ??source of mediastinal air. GI - * Progress diet as tolerates. RENAL/LYTES - * Monitor Electrolytes - replace appropriately. - * No issues at this point. ENDO - * No h/o DM or Thyroid Disease. HEME - * Stable H&H - trend. ID - * RIGHT Upper Lobe Pneumonia: * Zosyn/Azithromycin as discussed above. * Will add AM cultures despite already receiving IV antibiotics. * Trend Lactate. * Check ProCal. LINES/IV ACCESS - * PIVs intact. DVT PROPHYLAXIS - * Lovenox sq * SCDs. I have personally spent 60 minutes of critical care time in the direct management of this patient. This is a life/limb threatening event. This includes time spent evaluating patient, direct bedside care, chart review, placing orders, interpretation of diagnostic studies, discussion with consultants, patient, and family members, as well as other required patient management activities. This time is exclusive of all separately billable procedures, and teaching time and separate from and in addition to any other critical care service time. Thank you for this consultation allow us to be part of this patient's care. Please refer to my attending physician's documentation for any further recommendations. Attending addendum: The patient was seen, examined independently, agree with assessment and plan of my colleagues at [facility]. The patient is 21-year-old female with a history of asthma since age of 6, recently has been changed from Dulera to Symbicort, her insurance has not covered it, and she continued to use her nebulizer only. Patient presented to the hospital with increasing shortness of breath, accompanied with chest pain and wheezing. The patient last admission to the hospital with similar presentation was 2013. On her presentation the patient underwent a CAT scan of the chest due to chest pain which revealed pneumomediastinum. The patient did have groundglass opacity consistent with asthma exacerbation and mucoid impaction. Her physical exam revealed O2 saturation of 93% on 2 L nasal cannula, she is not using accessory muscles, she has scattered wheezing bilaterally, heart examination S1-S2 tachycardic, abdomen is benign no edema. She did not have pulses paradoxus. Her labs and chest x-ray as well as a CAT scan or reviewed and the findings are consistent with ruptured bleb to worsen mediastinum. Impression: Asthma exacerbation with ruptured bleb, lack of access to medication lead to exacerbation to the point the patient was admitted to the hospital, her peak flow was 200 prebronchodilator and 260 postbronchodilator. Her expected normal peak flow would be 340 based on her height 5 feet 1 inches. Plan: We will continue with current dose of Solu-Medrol, was the patient reached her goal with peak flow we will change her to prednisone p.o., continue with bronchodilators and add either Symbicort or Dulera, continue with Singulair , obtain IgE level to evaluate for extrinsic asthma, stop the antibiotics, though infectious process in this patient, leukocytosis is related to stress and the groundglass opacity are consistent with mucoid impaction in patients with asthma exacerbation. Continue with Xopenex. She will need to be evaluated by pulmonary as an outpatient. Discussed with her parents and with her in details. Discussed with the staff on rounds and details. Critical care time spent with the patient was 35 minutes. Problem Qualifiers (1) Status asthmaticus: Asthma severity: moderate (2) Dyspnea: Dyspnea type: shortness of breath Qualified Codes: R06.02 - Shortness of breath (3) Asthmatic bronchitis: Asthma severity: moderate Asthma complication type: with acute exacerbation
[2017-10-17] MEDS ORDERED: PIPERACILL/TAZOBAC CONSULT ACTIVE PRN (01:15)
[2017-10-17] MEDS ORDERED: PIPERACILL/TAZOBAC IV 4.5 GM in DEXTROSE 5% 100ML 100 ML IV SCH (01:30)
[2017-10-17] MEDS ORDERED: METHYLPREDNISOLONE IV 40 MG in SYRINGE 0 ML IV SCH (03:00)
[2017-10-17] MEDS ORDERED: INFLUENZA VIRUS QUAD VACCINE 0.5 ML SYR IM. ONE (03:15)
[2017-10-17] MEDS ORDERED: INFLUENZA ADMINISTRATION CHARGE ONE (03:15)
[2017-10-17] MEDS ORDERED: PNEUMOCOCCAL POLYSACCHARIDES 25 MCG/0.5 ML VIAL/SYR IM. ONE (03:15)
[2017-10-17] MEDS ORDERED: PNEUMOCOCCAL ADMINISTRATION CHARGE ONE (03:15)
[2017-10-17] MEDS: LEVALBUTEROL 1.25MG/0.5ML NEB INH SCH ×2 (03:35→07:49)
[2017-10-17] MEDS: METHYLPREDNISOLONE IV 40 MG in SYRINGE 0 ML IV SCH ×4 (05:18→23:37)
[2017-10-17 06:14] LABS: HEMATOCRIT 38.8 % (37-47); HEMOGLOBIN 13.2 g/dL (12.0-16.0); IG# 0.04 K/uL (0.00-0.02); LYMPH % 3.6 %; LYMPH ABS # 0.54 K/uL (1.2-3.4); MEAN CORPUSCULAR HEMOGLOBIN 29.9 pg (25-34); MEAN PLATELET VOLUME 9.9 fL (7.4-10.4); MONO % 2.4 %; MONO ABS # 0.36 K/uL (0.11-0.59); NEUT % 93.7 %; NEUT ABS # 14.14 K/uL (1.4-6.5); PLATELET COUNT 296 K/uL (130-400); RED CELL DISTRIBUTION WIDTH SD 41.9 fL (36.4-46.3); WHITE BLOOD COUNT 15.08 K/uL (4.8-10.8)
[2017-10-17 06:50] LABS: BLOOD UREA NITROGEN 9 mg/dl (7-18); CALCIUM 8.8 mg/dl (8.5-10.1); CARBON DIOXIDE 22 mmol/L (21-32); CREATININE 0.76 mg/dl (0.60-1.20); GLUCOSE 146 mg/dl (70-99); POTASSIUM 3.7 mmol/L (3.5-5.1); SODIUM 139 mmol/L (136-145)
--- NOTE | 2017-10-17 06:52 | DIAGNOSTIC IMAGING REPORT ---
CT ANGIOGRAM OF THE CHEST CLINICAL HISTORY: Chest pain and shortness of breath COMPARISON STUDY: 10/31/2016 TECHNIQUE: Following the IV administration of 93 mL of Optiray-320, CT angiogram of the thorax was performed from the thoracic inlet to the lung bases utilizing the pulmonary embolus protocol. Images are reviewed in the axial, sagittal, and coronal planes. IV contrast was administered without complication. MIP imaging was performed. A dose lowering technique was utilized adhering to the principles of ALARA. CT DOSE: 226.62 mGy.cm FINDINGS: No pathologically enlarged axillary mediastinal or hilar lymph nodes were visualized. There was no evidence of thoracic aortic dilatation. There were no pulmonary artery filling defects to indicate acute pulmonary embolism. No pleural effusions are visualized. There is moderately extensive pneumomediastinum. Air extends into the neck. There are groundglass opacities within the right upper lobe, likely inflammatory. No pneumothorax is visualized. IMPRESSION: 1. No evidence of acute pulmonary embolism 2. Moderately extensive pneumomediastinum 3. Right upper lobe groundglass opacities, likely infectious/inflammatory 4. No pleural effusions. No evidence of pneumothorax. Electronically signed by: Shan Carroll M.D. 10/17/2017 6:51 AM Dictated Date/Time: 10/17/2017 6:48 AM
[2017-10-17 06:56] LABS: CKMB 0.5 ng/ml (0.5-3.6)
[2017-10-17] MEDS ORDERED: PIPERACILL/TAZOBAC IV 3.375 GM in DEXTROSE 5% 100ML IV SCH (08:00)
[2017-10-17] MEDS: FEXOFENADINE HCL 180 MG TAB PO SCH (08:02)
[2017-10-17] MEDS: CITALOPRAM 40 MG TAB PO SCH (08:02)
[2017-10-17] MEDS: ENOXAPARIN 40 MG/0.4 ML SYR SQ SCH (08:05)
--- NOTE | 2017-10-17 08:43 | DIAGNOSTIC IMAGING REPORT ---
CHEST ONE VIEW PORTABLE HISTORY: Pneumomediastinum. asthma f/u COMPARISON: Chest 10/16/2017. FINDINGS: There is again noted pneumomediastinum which extends into the neck. This remains unchanged. No focal lung consolidations. The heart is normal in size. No pleural effusions. No pneumothorax. No rib fractures. IMPRESSION: No change in the pneumomediastinum. Electronically signed by: Brijesh King M.D. 10/17/2017 8:42 AM Dictated Date/Time: 10/17/2017 8:40 AM
--- NOTE | 2017-10-17 09:47 | Progress Note ---
Medicine Progress Note Date & Time of Visit: Oct 17, 2017 at 09:37. Subjective seen resting in bed, comfortable with 2 liters NC states she feels 50% better today less cough, non productive less chest pain denies fever/chill denies other symptoms Objective Last 8 Hrs Date Time Temp Pulse Resp B/P (MAP) Pulse Ox O2 Delivery O2 Flow Rate FiO2 10/17/17 08:00 Nasal Cannula 2.0 10/17/17 07:50 105 16 97 Nasal Cannula 2.0 10/17/17 06:00 107 18 131/75 (93) 93 Nasal Cannula 2.0 10/17/17 05:01 110 18 119/70 (86) 92 10/17/17 04:01 36.6 116 19 133/69 (90) 94 Nasal Cannula 2.0 10/17/17 04:00 Nasal Cannula 2.0 10/17/17 03:35 110 16 95 Nasal Cannula 2.0 10/17/17 03:01 115 16 117/72 (87) 95 Physical Exam: General- oriented x 3, not in distress, speaks in sentences with no effort Head- atraumatic Eyes- PERRL, EOMI, anicteric ENT- oropharynx clear Neck- supple, no JVD, no adenopathy, no thyromegaly Lungs- (+) bilateral scattered wheezing Heart- regular rhythm; no murmur, normal rate Abdomen- normal bowel sounds, soft, nontender Extremities- no pretibial edema, no calf tenderness Neuro- alert, oriented x 3; no gross focal deficits Skin- warm & dry Laboratory Results: Last 24 Hours Test 10/16/17 20:35 10/16/17 21:23 10/16/17 22:45 10/16/17 22:49 White Blood Count 20.75 K/uL Red Blood Count 4.93 M/uL Hemoglobin 15.2 g/dL Hematocrit 43.1 % Mean Corpuscular Volume 87.4 fL Mean Corpuscular Hemoglobin 30.8 pg Mean Corpuscular Hemoglobin Concent 35.3 g/dl Platelet Count 331 K/uL Mean Platelet Volume 9.8 fL Neutrophils (%) (Auto) 92.8 % Lymphocytes (%) (Auto) 5.2 % Monocytes (%) (Auto) 1.7 % Eosinophils (%) (Auto) 0.0 % Basophils (%) (Auto) 0.0 % Neutrophils # (Auto) 19.25 K/uL Lymphocytes # (Auto) 1.07 K/uL Monocytes # (Auto) 0.36 K/uL Eosinophils # (Auto) 0.00 K/uL Basophils # (Auto) 0.01 K/uL RDW Standard Deviation 41.1 fL RDW Coefficient of Variation 12.8 % Immature Granulocyte % (Auto) 0.3 % Immature Granulocyte # (Auto) 0.06 K/uL D-Dimer 330 ug/L FEU Sodium Level 136 mmol/L Potassium Level mmol/L Chloride Level 104 mmol/L Carbon Dioxide Level 25 mmol/L Anion Gap 7.0 mmol/L Blood Urea Nitrogen 9 mg/dl Creatinine 0.92 mg/dl Est Creatinine Clear Calc Drug Dose 86.5 ml/min Estimated GFR () 103.2 Estimated GFR (Non- 89.0 BUN/Creatinine Ratio 9.7 Random Glucose 124 mg/dl Calcium Level 9.5 mg/dl Total Bilirubin 0.5 mg/dl Aspartate Amino Transf (AST/SGOT) U/L Alanine Aminotransferase (ALT/SGPT) 24 U/L Alkaline Phosphatase 71 U/L Total Creatine Kinase U/L 21 U/L Creatine Kinase MB < 0.5 ng/ml 0.5 ng/ml Creatine Kinase MB Ratio 2.4 Troponin I < 0.015 ng/ml < 0.015 ng/ml Total Protein 8.0 gm/dl Albumin 4.1 gm/dl Globulin 3.9 gm/dl Albumin/Globulin Ratio 1.1 Phosphorus Level 2.7 mg/dl Magnesium Level 1.8 mg/dl Thyroid Stimulating Hormone (TSH) 0.193 uIu/ml Free Thyroxine 1.10 ng/dl Human Chorionic Gonadotropin, Qual NEG Influenza Type A (RT-PCR) Neg for Influ A Influenza Type B (RT-PCR) Neg for Influ B Prothrombin Time 10.5 SECONDS Prothromb Time International Ratio 1.0 Lactic Acid Level 3.0 mmol/L Procalcitonin < 0.05 ng/ml Test 10/16/17 22:53 10/16/17 23:15 10/17/17 01:35 10/17/17 06:02 Potassium Level 3.5 mmol/L 3.7 mmol/L Blood Gas Sample Site R Radial Bedside Blood Gas pH (LAB) 7.53 Bedside Blood Gas pCO2 (LAB) 25 mmHg Bedside Blood Gas pO2 (LAB) 92 mmHg Bedside Blood Gas HCO3 (LAB) 21 meq/L Bedside Blood Gas Total CO2 22 mEq/l Bedside Blood Gas Base Excess (LAB) -2.0 meq/L Bedside Blood Gas O2 Saturation 98.0 % Micah Test Pass Oxygen Delivery Device Cannula Urine Color YELLOW Urine Appearance CLEAR Urine pH 6.0 Urine Specific [place] 1.020 Urine Protein NEG Urine Glucose (UA) NEG Urine Ketones NEG Urine Occult Blood NEG Urine Nitrite NEG Urine Bilirubin NEG Urine Urobilinogen NEG Urine Leukocyte Esterase NEG White Blood Count 15.08 K/uL Red Blood Count 4.41 M/uL Hemoglobin 13.2 g/dL Hematocrit 38.8 % Mean Corpuscular Volume 88.0 fL Mean Corpuscular Hemoglobin 29.9 pg Mean Corpuscular Hemoglobin Concent 34.0 g/dl Platelet Count 296 K/uL Mean Platelet Volume 9.9 fL Neutrophils (%) (Auto) 93.7 % Lymphocytes (%) (Auto) 3.6 % Monocytes (%) (Auto) 2.4 % Eosinophils (%) (Auto) 0.0 % Basophils (%) (Auto) 0.0 % Neutrophils # (Auto) 14.14 K/uL Lymphocytes # (Auto) 0.54 K/uL Monocytes # (Auto) 0.36 K/uL Eosinophils # (Auto) 0.00 K/uL Basophils # (Auto) 0.00 K/uL RDW Standard Deviation 41.9 fL RDW Coefficient of Variation 13.0 % Immature Granulocyte % (Auto) 0.3 % Immature Granulocyte # (Auto) 0.04 K/uL Sodium Level 139 mmol/L Chloride Level 107 mmol/L Carbon Dioxide Level 22 mmol/L Anion Gap 10.0 mmol/L Blood Urea Nitrogen 9 mg/dl Creatinine 0.76 mg/dl Est Creatinine Clear Calc Drug Dose 104.7 ml/min Estimated GFR () 130.0 Estimated GFR (Non- 112.1 BUN/Creatinine Ratio 11.6 Random Glucose 146 mg/dl Lactic Acid Level 2.8 mmol/L Calcium Level 8.8 mg/dl Phosphorus Level 3.0 mg/dl Magnesium Level 2.3 mg/dl Total Creatine Kinase 19 U/L Creatine Kinase MB 0.5 ng/ml Creatine Kinase MB Ratio 2.6 Troponin I < 0.015 ng/ml Date/Time Source Procedure Growth Status 10/17/17 06:15 Blood Blood Culture Pending Received 10/17/17 06:02 Blood Blood Culture Pending Received 10/16/17 22:45 Nasal MRSA DNA Surveillance Screen - Final Specimen Negative for MRSA by DNA Probe Complete Assessment & Plan STATUS ASTHMATICUS - CT chest: RUL infiltrate possible mucus per Pulmonary - improving gradually but still wheezing continue Solumedrol, Nebs q4h d/c antibiotics per Pulm (procalcitonin normal) - start Advair will need case management consult re: bronchodilator insurance coverage PNEUMOMEDIASTINUM - no further interventions at this time per Pulm monitor - PRN analgesics EKG CHANGES -Inferior T-wave changes noted -Likely due to tachycardia - repeat EKG sinus tach ff up echo DVT PROPHYLAXIS -SQ Lovenox DISPOSITION pending anticipate d/c home when medically stable needs close 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 Current Inpatient Medications: Current Inpatient Medications Medications (Trade) Dose Ordered Sig/Radha Route Start Time Stop Time Status Last Admin Dose Admin Enoxaparin Sodium (Lovenox Inj) 40 mg Q24H SQ 10/17/17 09:00 11/16/17 08:59 10/17/17 08:05 40 MG Acetaminophen (Tylenol Tab) 650 mg Q4H PRN PO 10/16/17 22:00 11/15/17 21:59 10/17/17 03:54 650 MG Ondansetron HCl (Zofran Inj) 4 mg Q6H PRN IV 10/16/17 22:00 11/15/17 21:59 Levalbuterol (Xopenex 1.25MG/ 0.5ML Neb) 1.25 mg Q4R INH 10/17/17 00:00 11/16/17 00:00 10/17/17 07:49 1.25 MG Citalopram Hydrobromide (celeXA TAB) 40 mg DAILY PO 10/17/17 09:00 11/16/17 08:59 10/17/17 08:02 40 MG Fexofenadine HCl (Salima Tab) 180 mg DAILY PO 10/17/17 09:00 11/16/17 08:59 10/17/17 08:02 180 MG Montelukast Sodium (Singulair Tab) 10 mg HS PO 10/17/17 21:00 11/16/17 20:59 Methylprednisolone Sodium Succinate 40 mg/Syringe 0.64 ml @ 1.5 mls/min Q6H IV 10/17/17 04:00 11/16/17 02:59 10/17/17 05:18 1.5 MLS/MIN Miscellaneous Information ([facility] Protocol For Hyperglycemia) 1 ea PRN PRN N/A 10/16/17 22:30 10/18/17 22:29 Parenteral Electrolyte Solution 1,000 ml @ 80 mls/hr [id number] IV 10/16/17 22:30 11/15/17 22:29 10/17/17 00:43 80 MLS/HR Levalbuterol (Xopenex 1.25MG/ 0.5ML Neb) 1.25 mg Q2R PRN INH 10/16/17 23:00 11/15/17 22:59 Ketorolac Tromethamine (Toradol Inj) 15 mg Q6H PRN IV 10/16/17 23:45 10/21/17 23:44 10/17/17 00:43 15 MG Ioversol (Optiray 320) 125 ml UD PRN IV 10/17/17 00:00 10/21/17 00:00
[2017-10-17] MEDS ORDERED: FLUTICASONE/SALMETEROL 250/50 (ADVAIR) 14 PUFF/1 INHALER INH ONE (09:56)
[2017-10-17] MEDS: LEVALBUTEROL 1.25MG/0.5ML NEB INH PRN (11:16)
[2017-10-17 13:40] LABS: CKMB < 0.5 ng/ml (0.5-3.6)
--- NOTE | 2017-10-17 16:41 | ECHOCARDIOGRAM REPORT ---
*NOTICE TO RECEIVING CONSTITUTION PARTY AGENCY This information is strictly Confidential and protected under [place] law. [place] law prohibits you from making any further disclosure of this information unless further disclosure is expressly permitted by the written consent of the person to whom it pertains or is authorized by law. A general authorization for the release of medical or other information is not sufficient for this purpose. Hospital accepts no responsibility if the information is made available to any other person, INCLUDING THE PATIENT. Interpretation Summary * Name: MIGUEL ÁNGEL KEE Study Date: 10/17/2017 06:22 AM BP: 117/72 mmHg * Patient Location: E106 HR: 110 * : 1995 (M/d/yyyy) Gender: Female Height: 61 in * Age: 21 yrs Ethnicity: CA Weight: 154 lb * Ordering Physician: Mavis White * Referring Physician: Self, Referred * Performed By: Alvarado Connolly RCS * * Reason For Study: EKG Changes * BSA: 1.7 m2 * -- Conclusions -- * Ejection Fraction = 65-70%. * The left ventricular wall motion is normal. * No significant valvular pathology. Procedure Details * A complete two-dimensional transthoracic echocardiogram was performed (2D, M-mode, Doppler and color flow Doppler). Left Ventricle * The left ventricle is normal in size. * There is no thrombus. * There is normal left ventricular wall thickness. * Left ventricular systolic function is normal. * Ejection Fraction = 65-70%. * The left ventricular wall motion is normal. Right Ventricle * The right ventricle is normal size. * The right ventricular systolic function is normal as assessed by tricuspid annular plane systolic excursion (TAPSE) (normal >1.5 cm). Atria * The left atrial size is normal. * Right atrial size is normal. * There is no evidence of atrial septal defect, but resolution does not allow assessment for a patent foramen ovale. Mitral Valve * The mitral valve is normal. * There is no mitral valve stenosis. * There is trace mitral regurgitation. Tricuspid Valve * The tricuspid valve is normal. * There is no tricuspid stenosis. * Significant tricuspid regurgitation is absent. Aortic Valve * The aortic valve is trileaflet. * Aortic stenosis is absent. * There is no significant aortic regurgitation. Pulmonic Valve * The pulmonary valve is not well seen, but the Doppler examination is normal without significant regurgitation or stenosis. Great Vessels * The aortic root and proximal ascending aorta are normal sized. Pericardium/Pleural * There is no pericardial effusion. Great Vessels * Normal inferior vena cava size and collapsability with sniff indicates a normal right atrial pressure of 3 mmHg Left Ventricular Diastolic Function * Normal lateral TDI waveform suggesting normal diastolic function. Medial TDI waveform nondiagnostic due to EA fusion. MMode 2D Measurements and Calculations IVSd 0.85 cm IVSs 1.1 cm LVIDd 4.9 cm LVIDs 3.3 cm LVPWd 0.78 cm LVPWs 1.2 cm IVS/LVPW 1.1 FS 33.1 % EDV(Teich) 114.1 ml ESV(Teich) 44.0 ml EF(Teich) 61.4 % EDV(cubed) 119.3 ml ESV(cubed) 35.8 ml EF(cubed) 70.0 % % IVS thick 25.7 % % LVPW thick 55.3 % LV mass(C)d 136.0 grams LV mass(C)dI 80.5 grams/m\S\2 LV mass(C)s 115.6 grams LV mass(C)sI 68.4 grams/m\S\2 SV(Teich) 70.1 ml SI(Teich) 41.5 ml/m\S\2 SV(cubed) 83.5 ml SI(cubed) 49.4 ml/m\S\2 Ao root diam 2.5 cm Ao root area 4.9 cm\S\2 ACS 1.3 cm LA dimension 4.3 cm LA/Ao 1.7 EDV(MOD-sp4) 70.0 ml ESV(MOD-sp4) 31.0 ml EF(MOD-sp4) 55.7 % EDV(MOD-sp2) 95.0 ml ESV(MOD-sp2) 42.0 ml EF(MOD-sp2) 55.8 % SV(MOD-sp4) 39.0 ml SI(MOD-sp4) 23.1 ml/m\S\2 SV(MOD-sp2) 53.0 ml SI(MOD-sp2) 31.4 ml/m\S\2 Doppler Measurements and Calculations MV E max lamar 72.9 cm/sec MV A max lamar 74.0 cm/sec MV E/A 0.98 MV P1/2t max lamar 68.6 cm/sec MV P1/2t 141.1 msec MVA(P1/2t) 1.6 cm\S\2 MV dec slope 142.4 cm/sec\S\2 MV dec time 0.24 sec Ao V2 max 128.1 cm/sec Ao max PG 6.6 mmHg Ao max PG (full) 1.8 mmHg LV V1 max PG 4.7 mmHg LV V1 max 108.8 cm/sec TR max lamar 138.7 cm/sec
[2017-10-17] MEDS: FLUTICASONE/SALMETEROL 250/50 (ADVAIR) 14 PUFF/1 INHALER INH SCH (23:37)
[2017-10-17] MEDS: MONTELUKAST SOD 10 MG TAB PO SCH (23:38)
[2017-10-18] VITALS (13 sets, daily range): BP systolic 110–165; BP diastolic 56–87; PULSE 68–116; TEMP 36.5–36.7; O2SAT 91–98
[2017-10-18] MEDS: METHYLPREDNISOLONE IV 40 MG in SYRINGE 0 ML IV SCH ×4 (04:20→20:40)
[2017-10-18] MEDS: LEVALBUTEROL 1.25MG/0.5ML NEB INH PRN (06:14)
--- NOTE | 2017-10-18 07:12 | DIAGNOSTIC IMAGING REPORT ---
CHEST ONE VIEW PORTABLE CLINICAL HISTORY: asthma f/u dyspnea COMPARISON STUDY: The 14/10/2017 FINDINGS: Improving pneumomediastinum. Minimal residual. Developing interstitial infiltrate left base. Lungs otherwise appear clear. IMPRESSION: 1. Improving pneumomediastinum. 2. Developing left basilar infiltrate. The above report was generated using voice recognition software. It may contain grammatical, syntax or spelling errors. Electronically signed by: Randall Worley M.D. 10/18/2017 7:10 AM Dictated Date/Time: 10/18/2017 7:09 AM
[2017-10-18 07:31] LABS: BASO ABS # 0.01 K/uL (0-0.2); HEMATOCRIT 41.5 % (37-47); HEMOGLOBIN 14.3 g/dL (12.0-16.0); IG# 0.14 K/uL (0.00-0.02); LYMPH % 3.9 %; LYMPH ABS # 0.86 K/uL (1.2-3.4); MEAN CELL VOLUME 88.7 fL (80-100); MEAN CORPUSCULAR HEMOGLOBIN 30.6 pg (25-34); MEAN CORPUSCULAR HGB CONC 34.5 g/dl (32-36); MEAN PLATELET VOLUME 9.9 fL (7.4-10.4); MONO % 4.2 %; MONO ABS # 0.93 K/uL (0.11-0.59); NEUT % 91.3 %; NEUT ABS # 19.98 K/uL (1.4-6.5); PLATELET COUNT 307 K/uL (130-400); RED CELL DISTRIBUTION WIDTH CV 13.2 % (11.5-14.5); RED CELL DISTRIBUTION WIDTH SD 42.7 fL (36.4-46.3); WHITE BLOOD COUNT 21.92 K/uL (4.8-10.8)
[2017-10-18 08:39] LABS: CREATININE 0.67 mg/dl (0.60-1.20); PHOSPHORUS 2.5 mg/dl (2.5-4.9); POTASSIUM 3.8 mmol/L (3.5-5.1)
[2017-10-18] MEDS: CITALOPRAM 40 MG TAB PO SCH (08:54)
[2017-10-18] MEDS: FLUTICASONE/SALMETEROL 250/50 (ADVAIR) 14 PUFF/1 INHALER INH SCH ×2 (08:54→20:40)
[2017-10-18] MEDS: ENOXAPARIN 40 MG/0.4 ML SYR SQ SCH (08:54)
[2017-10-18] MEDS: FEXOFENADINE HCL 180 MG TAB PO SCH (08:54)
[2017-10-18] MEDS ORDERED: NURSING VERBAL MED ORDER ONE (10:30)
--- NOTE | 2017-10-18 13:03 | Progress Note ---
Medicine Progress Note Date & Time of Visit: Oct 18, 2017 at 13:03. Subjective Seen resting in bed comfortable Her denzel Preciado was at the bedside States she feels improved today Less dyspnea and cough No chest pain No other symptoms Objective Last 8 Hrs Date Time Temp Pulse Resp B/P (MAP) Pulse Ox O2 Delivery O2 Flow Rate FiO2 10/18/17 11:40 36.5 87 18 165/85 (111) 93 Nasal Cannula 2.0 10/18/17 08:45 Nasal Cannula 2.0 10/18/17 07:16 36.5 89 18 126/81 (96) 97 Nasal Cannula 2.0 10/18/17 06:14 82 16 98 Nasal Cannula 2.0 Physical Exam: General- oriented x 3, not in distress, speaks in sentences with no effort Eyes- anicteric Neck- supple, no JVD Lungs- (+) bilateral scattered rhonchi good air entry bilaterally Heart- regular rhythm; no murmur, normal rate Abdomen- normal bowel sounds, soft, nontender Extremities- no pretibial edema, no calf tenderness Neuro- alert, oriented x 3; no gross focal deficits Skin- warm & dry Laboratory Results: Last 24 Hours Test 10/18/17 06:54 10/18/17 07:30 10/18/17 11:39 White Blood Count 21.92 K/uL Red Blood Count 4.68 M/uL Hemoglobin 14.3 g/dL Hematocrit 41.5 % Mean Corpuscular Volume 88.7 fL Mean Corpuscular Hemoglobin 30.6 pg Mean Corpuscular Hemoglobin Concent 34.5 g/dl Platelet Count 307 K/uL Mean Platelet Volume 9.9 fL Neutrophils (%) (Auto) 91.3 % Lymphocytes (%) (Auto) 3.9 % Monocytes (%) (Auto) 4.2 % Eosinophils (%) (Auto) 0.0 % Basophils (%) (Auto) 0.0 % Neutrophils # (Auto) 19.98 K/uL Lymphocytes # (Auto) 0.86 K/uL Monocytes # (Auto) 0.93 K/uL Eosinophils # (Auto) 0.00 K/uL Basophils # (Auto) 0.01 K/uL RDW Standard Deviation 42.7 fL RDW Coefficient of Variation 13.2 % Immature Granulocyte % (Auto) 0.6 % Immature Granulocyte # (Auto) 0.14 K/uL Sodium Level 138 mmol/L Potassium Level 3.8 mmol/L Chloride Level 106 mmol/L Carbon Dioxide Level 23 mmol/L Anion Gap 9.0 mmol/L Blood Urea Nitrogen 11 mg/dl Creatinine 0.67 mg/dl Est Creatinine Clear Calc Drug Dose 119.1 ml/min Estimated GFR () 145.6 Estimated GFR (Non- 125.7 BUN/Creatinine Ratio 16.4 Random Glucose 124 mg/dl Calcium Level 9.0 mg/dl Phosphorus Level 2.5 mg/dl Magnesium Level 2.4 mg/dl Bedside Glucose 123 mg/dl 104 mg/dl Date/Time Source Procedure Growth Status 10/17/17 14:05 Sputum Expectorated Sputum Gram Stain - Final Resulted 10/17/17 14:05 Sputum Expectorated Sputum Sputum Culture Pending Resulted Assessment & Plan STATUS ASTHMATICUS resolved - CT chest: RUL infiltrate possible mucus per Pulmonary -Wheezing resolved but still has some rhonchi continue Solumedrol, Xopenex scheduled d/c antibiotics per Pulm (procalcitonin normal) -Started Advair will need case management consult re: bronchodilator insurance coverage Appreciate pulmonary service recommendations PNEUMOMEDIASTINUM - no further interventions at this time per Pulm monitor - PRN analgesics EKG CHANGES -Inferior T-wave changes noted -Likely due to tachycardia - repeat EKG sinus tach ff up echo essentially normal DVT PROPHYLAXIS -SQ Lovenox DISPOSITION pending anticipate d/c home when medically stable needs close Pulm and Shop Helper ff up Current Inpatient Medications: Current Inpatient Medications Medications (Trade) Dose Ordered Sig/Radha Route Start Time Stop Time Status Last Admin Dose Admin Enoxaparin Sodium (Lovenox Inj) 40 mg Q24H SQ 10/17/17 09:00 11/16/17 08:59 10/18/17 08:54 40 MG Acetaminophen (Tylenol Tab) 650 mg Q4H PRN PO 10/16/17 22:00 11/15/17 21:59 10/17/17 03:54 650 MG Ondansetron HCl (Zofran Inj) 4 mg Q6H PRN IV 10/16/17 22:00 11/15/17 21:59 Citalopram Hydrobromide (celeXA TAB) 40 mg DAILY PO 10/17/17 09:00 11/16/17 08:59 10/18/17 08:54 40 MG Fexofenadine HCl (Salima Tab) 180 mg DAILY PO 10/17/17 09:00 11/16/17 08:59 10/18/17 08:54 180 MG Montelukast Sodium (Singulair Tab) 10 mg HS PO 10/17/17 21:00 11/16/17 20:59 10/17/17 23:38 10 MG Methylprednisolone Sodium Succinate 40 mg/Syringe 0.64 ml @ 1.5 mls/min Q6H IV 10/17/17 04:00 11/16/17 02:59 10/18/17 10:27 1.5 MLS/MIN Miscellaneous Information ([facility] Protocol For Hyperglycemia) 1 ea PRN PRN N/A 10/16/17 22:30 10/18/17 22:29 Levalbuterol (Xopenex 1.25MG/ 0.5ML Neb) 1.25 mg Q2R PRN INH 10/16/17 23:00 11/15/17 22:59 10/18/17 06:14 1.25 MG Ketorolac Tromethamine (Toradol Inj) 15 mg Q6H PRN IV 10/16/17 23:45 10/21/17 23:44 10/17/17 00:43 15 MG Ioversol (Optiray 320) 125 ml UD PRN IV 10/17/17 00:00 10/21/17 00:00 Salmeterol Xinafoate/ Fluticasone (Advair Diskus 250/50 Inh) 1 puff BID INH 10/17/17 21:00 11/16/17 20:59 10/18/17 08:54 1 PUFF Levalbuterol (Xopenex 0.63 Mg/ 3 Ml Neb) 0.63 mg Q6R INH 10/18/17 13:00 11/17/17 12:59 UNV
[2017-10-18] MEDS: LEVALBUTEROL 0.63MG/3 ML NEB INH SCH ×3 (14:02→19:20)
--- NOTE | 2017-10-18 16:39 | Pulmonology Progress Note ---
Pulmonary Progress Note Date of Service Oct 18, 2017. Attending Dr. Thompson Subjective The patient feels better, however she continued to be on oxygen and having cough , oxygen seems to be adding minimal to her treatment at this point. Her wheezing has been improving but she claims having excessive amount of secretions at this point. I assured her that this is expected with treatment with steroids induction. Objective Physical exam on 10/18/2017 revealed young female currently with O2 sats 94% on 2 L, heart examination S1-S2 slightly tachycardic, minimal wheezing mainly at the left base, otherwise clear lung [place], abdomen is benign no edema. IgE level still pending. Leukocytosis is expected with steroids. Assessment & Plan 1. Status asthmaticus. Improving. 2. Possible superimposed extrinsic factor, IgE is still pending. 3. Depression. 4. No evidence of infectious process at this point. Plan: 1. I will stop Solu-Medrol by the morning and start the patient on prednisone 50 mg daily, continue for at least 5 days prior to start tapering slowly. The patient has been in and out prednisone courses for the past 2 months. 2. The patient should go on inhaled corticosteroids as well as long-acting beta agonist. If Dulera is to continue, the highest dose should be started with. Other alternative are reasonable as well. 3. Follow IgE level as an outpatient. 4. Ambulate the patient without oxygen in the morning. 5. Anticipate discharge home in the morning. 6. Provide the patient with a prescription for portable nebulizer as she is active. 7. Continue with Salima. 8. She will need to be followed in the pulmonary clinic within a week after discharge. Thank you, will follow. Data Medications: Current Inpatient Medications Medications (Trade) Dose Ordered Sig/Radha Route Start Time Stop Time Status Last Admin Dose Admin Enoxaparin Sodium (Lovenox Inj) 40 mg Q24H SQ 10/17/17 09:00 11/16/17 08:59 10/18/17 08:54 40 MG Acetaminophen (Tylenol Tab) 650 mg Q4H PRN PO 10/16/17 22:00 11/15/17 21:59 10/17/17 03:54 650 MG Ondansetron HCl (Zofran Inj) 4 mg Q6H PRN IV 10/16/17 22:00 11/15/17 21:59 Citalopram Hydrobromide (celeXA TAB) 40 mg DAILY PO 10/17/17 09:00 11/16/17 08:59 10/18/17 08:54 40 MG Fexofenadine HCl (Salima Tab) 180 mg DAILY PO 10/17/17 09:00 11/16/17 08:59 10/18/17 08:54 180 MG Montelukast Sodium (Singulair Tab) 10 mg HS PO 10/17/17 21:00 11/16/17 20:59 10/17/17 23:38 10 MG Methylprednisolone Sodium Succinate 40 mg/Syringe 0.64 ml @ 1.5 mls/min Q6H IV 10/17/17 04:00 10/19/17 08:00 10/18/17 16:07 1.5 MLS/MIN Miscellaneous Information ([facility] Protocol For Hyperglycemia) 1 ea PRN PRN N/A 10/16/17 22:30 10/18/17 22:29 Levalbuterol (Xopenex 1.25MG/ 0.5ML Neb) 1.25 mg Q2R PRN INH 10/16/17 23:00 11/15/17 22:59 10/18/17 06:14 1.25 MG Ketorolac Tromethamine (Toradol Inj) 15 mg Q6H PRN IV 10/16/17 23:45 10/21/17 23:44 10/17/17 00:43 15 MG Ioversol (Optiray 320) 125 ml UD PRN IV 10/17/17 00:00 10/21/17 00:00 Salmeterol Xinafoate/ Fluticasone (Advair Diskus 250/50 Inh) 1 puff BID INH 10/17/17 21:00 11/16/17 20:59 10/18/17 08:54 1 PUFF Levalbuterol (Xopenex 0.63 Mg/ 3 Ml Neb) 0.63 mg Q6R INH 10/18/17 13:00 11/17/17 12:59 10/18/17 14:02 0.63 MG Prednisone (PredniSONE TAB) 50 mg DAILY PO 10/19/17 09:00 11/18/17 08:59 UNV I & O: 24-Hour Column 10/19/17 07:59 Intake Total 480 ml Balance 480 ml Vital Signs: Date Time Temp Pulse Resp B/P (MAP) Pulse Ox O2 Delivery O2 Flow Rate FiO2 10/18/17 16:01 Nasal Cannula 2.0 10/18/17 14:41 36.6 97 18 121/76 (91) 94 Nasal Cannula 2.0 10/18/17 14:04 84 16 98 Nasal Cannula 2.0 10/18/17 12:30 Nasal Cannula 2.0 10/18/17 11:40 36.5 87 18 165/85 (111) 93 Nasal Cannula 2.0 10/18/17 08:45 Nasal Cannula 2.0 10/18/17 07:16 36.5 89 18 126/81 (96) 97 Nasal Cannula 2.0 10/18/17 06:14 82 16 98 Nasal Cannula 2.0 10/18/17 04:19 36.6 76 18 110/56 (74) 97 Nasal Cannula 2.0 10/18/17 04:05 Nasal Cannula 2.0 10/18/17 00:12 36.7 98 19 124/87 (99) 96 Nasal Cannula 2.0 10/18/17 00:05 Nasal Cannula 2.0 10/17/17 20:06 36.6 104 18 133/82 (99) 95 Nasal Cannula 2.0 10/17/17 20:05 Nasal Cannula 2.0 Laboratory Results: Last 24 Hours Test 10/18/17 06:54 10/18/17 07:30 10/18/17 11:39 White Blood Count 21.92 K/uL Red Blood Count 4.68 M/uL Hemoglobin 14.3 g/dL Hematocrit 41.5 % Mean Corpuscular Volume 88.7 fL Mean Corpuscular Hemoglobin 30.6 pg Mean Corpuscular Hemoglobin Concent 34.5 g/dl Platelet Count 307 K/uL Mean Platelet Volume 9.9 fL Neutrophils (%) (Auto) 91.3 % Lymphocytes (%) (Auto) 3.9 % Monocytes (%) (Auto) 4.2 % Eosinophils (%) (Auto) 0.0 % Basophils (%) (Auto) 0.0 % Neutrophils # (Auto) 19.98 K/uL Lymphocytes # (Auto) 0.86 K/uL Monocytes # (Auto) 0.93 K/uL Eosinophils # (Auto) 0.00 K/uL Basophils # (Auto) 0.01 K/uL RDW Standard Deviation 42.7 fL RDW Coefficient of Variation 13.2 % Immature Granulocyte % (Auto) 0.6 % Immature Granulocyte # (Auto) 0.14 K/uL Sodium Level 138 mmol/L Potassium Level 3.8 mmol/L Chloride Level 106 mmol/L Carbon Dioxide Level 23 mmol/L Anion Gap 9.0 mmol/L Blood Urea Nitrogen 11 mg/dl Creatinine 0.67 mg/dl Est Creatinine Clear Calc Drug Dose 119.1 ml/min Estimated GFR () 145.6 Estimated GFR (Non- 125.7 BUN/Creatinine Ratio 16.4 Random Glucose 124 mg/dl Calcium Level 9.0 mg/dl Phosphorus Level 2.5 mg/dl Magnesium Level 2.4 mg/dl Bedside Glucose 123 mg/dl 104 mg/dl
[2017-10-18] MEDS: MONTELUKAST SOD 10 MG TAB PO SCH (20:40)
--- NOTE | 2017-10-18 20:43 | Progress Note ---
Post ICU Progress Note Date & Time Oct 18, 2017 at 20:43 Vital Signs Vital Signs Past 12 Hours Date Time Temp Pulse Resp B/P (MAP) Pulse Ox O2 Delivery O2 Flow Rate FiO2 10/18/17 19:20 116 16 94 Nasal Cannula 2.0 10/18/17 18:52 36.7 93 18 122/79 (93) 93 Nasal Cannula 2.0 10/18/17 18:36 92 Room Air 10/18/17 16:01 Nasal Cannula 2.0 10/18/17 14:41 36.6 97 18 121/76 (91) 94 Nasal Cannula 2.0 10/18/17 14:04 84 16 98 Nasal Cannula 2.0 10/18/17 12:30 Nasal Cannula 2.0 10/18/17 11:40 36.5 87 18 165/85 (111) 93 Nasal Cannula 2.0 10/18/17 08:45 Nasal Cannula 2.0 Notes Mental Status: alert / awake Nausea / Vomiting: adequately controlled Pain: improving with treatment Airway Patency, RR, SpO2: see Notes BP & HR: stable & adequate Patient is a 21-year-old female with significant past medical history of asthma who has had worsening exacerbations over the past few years. She was admitted to the ICU initially and status asthmaticus. During workup for continued complaints of chest discomfort, the patient was found to have a moderate sized pneumomediastinum. The patient underwent antibiotic therapy as well as aggressive pulmonary toilet and administration of pain medications and steroids. She was downgraded from the ICU as her clinical picture did improve. On evaluation today, the patient appears much better. She is off supplemental oxygen. She is maintained her saturations and reports that she ambulate in the rene and her oxygen saturation only went to 91%. She denies any chest discomfort at this point. She questions results of her IgE labs. Otherwise, the patient reports feeling much better than her initial presentation. She offers no complaints at this point. Consider outpatient follow up in 1 to 2 weeks with: PCP, Consider Pulmonary f/ u for worsening asthma s/s. Repeat imaging needed: Continued CXRs for ?? new LLL infiltrative changes and continued evaluation of pneumomediastinum. Added CXR. Follow up cultures: None at this point. Reviewed progress notes, labs, and inpatient medication list Continue current management Additional recommendations: As above. Added repeat AM CXR in the setting of ?? LLL infiltrative change and continued elevation of WBCs (likely more related to demargination from steroids). Thank you for allowing us to participate in the care of this patient. At this point, Critical Care Services will sign off on this case. Please feel free to reconsult as needed. Consults & Procedures Consultants: Pulmonary
[2017-10-18] MEDS ORDERED: AZITHROMYCIN IV 250 MG in DEXTROSE 5% 250ML 250 ML IV SCH (22:00)
[2017-10-19] VITALS (8 sets, daily range): BP systolic 121–134; BP diastolic 69–83; PULSE 79–109; TEMP 36.6–36.9; O2SAT 91–97
[2017-10-19] MEDS: LEVALBUTEROL 0.63MG/3 ML NEB INH SCH ×3 (02:09→14:12)
[2017-10-19] MEDS: METHYLPREDNISOLONE IV 40 MG in SYRINGE 0 ML IV SCH (04:09)
[2017-10-19 06:21] LABS: BASO % 0.1 %; BASO ABS # 0.01 K/uL (0-0.2); HEMATOCRIT 43.9 % (37-47); HEMOGLOBIN 14.1 g/dL (12.0-16.0); IG# 0.16 K/uL (0.00-0.02); LYMPH % 6.5 %; LYMPH ABS # 1.15 K/uL (1.2-3.4); MEAN CELL VOLUME 89.4 fL (80-100); MEAN CORPUSCULAR HEMOGLOBIN 28.7 pg (25-34); MEAN CORPUSCULAR HGB CONC 32.1 g/dl (32-36); MEAN PLATELET VOLUME 10.1 fL (7.4-10.4); MONO % 5.3 %; MONO ABS # 0.94 K/uL (0.11-0.59); NEUT % 87.2 %; NEUT ABS # 15.43 K/uL (1.4-6.5); PLATELET COUNT 331 K/uL (130-400); RED CELL DISTRIBUTION WIDTH CV 12.7 % (11.5-14.5); RED CELL DISTRIBUTION WIDTH SD 42.1 fL (36.4-46.3); WHITE BLOOD COUNT 17.69 K/uL (4.8-10.8)
[2017-10-19 06:51] LABS: CREATININE 0.64 mg/dl (0.60-1.20); POTASSIUM 4.2 mmol/L (3.5-5.1)
[2017-10-19 07:06] LABS: PHOSPHORUS 3.4 mg/dl (2.5-4.9)
--- NOTE | 2017-10-19 07:21 | DIAGNOSTIC IMAGING REPORT ---
CHEST ONE VIEW PORTABLE CLINICAL HISTORY: 21 years-old Female presenting with f/u LLL/pneumoediastium. TECHNIQUE: Portable upright AP view of the chest was obtained. COMPARISON: 10/18/2017. FINDINGS: Cardiomediastinal silhouette normal. Decreased conspicuity of pneumomediastinum. Lungs and pleural spaces clear. Osseous structures normal. Upper abdomen normal. IMPRESSION: 1. Continued decrease conspicuity of pneumomediastinum. The presence of pulmonary interstitial emphysema is better appreciated on CT from 10/17/2017. No focal consolidation. No pneumothorax. Electronically signed by: Keaton Collins M.D. 10/19/2017 7:20 AM Dictated Date/Time: 10/19/2017 7:16 AM
[2017-10-19] MEDS: FLUTICASONE/SALMETEROL 250/50 (ADVAIR) 14 PUFF/1 INHALER INH SCH (10:21)
[2017-10-19] MEDS: FEXOFENADINE HCL 180 MG TAB PO SCH (10:22)
[2017-10-19] MEDS: CITALOPRAM 40 MG TAB PO SCH (10:22)
[2017-10-19] MEDS: ENOXAPARIN 40 MG/0.4 ML SYR SQ SCH (10:22)
--- NOTE | 2017-10-19 12:31 | Pulmonology Progress Note ---
Pulmonary Progress Note Date of Service Oct 19, 2017. Attending Dr. Thompson Subjective The patient is improving from pulmonary standpoint, she was ambulatory without oxygen and her O2 sat remains in the 90s, no events overnight, cough has subsided, no sputum production no hemoptysis. No wheezing and no shortness of breath. No chest pain also was reported. Objective Physical exam on 10/18/2017 revealed young female currently with O2 sats 94% on 2 L, heart examination S1-S2 slightly tachycardic, minimal wheezing mainly at the left base, otherwise clear lung obregon, abdomen is benign no edema. IgE level still pending. Leukocytosis is expected with steroids. Physical exam on 10/19/2017 revealed young female without any respiratory distress, O2 saturation 96% on room air, clear lung obregon without wheezing, S1- S2 regular rate and rhythm. No tremor and no oral thrush. Assessment & Plan 1. Status asthmaticus. Improving. 2. Possible superimposed extrinsic factor, IgE is still pending. 3. Depression. 4. No evidence of infectious process at this point. Plan: 1. Start prednisone 50 mg p.o. daily for 5 days then taper by 10 mg every third day. The patient has been treated with prednisone on 3 courses before. 2. Continue with short acting beta agonist as well as long-acting inhaler such as Symbicort or Dulera, use a highest dose upon discharge. 3. The patient can be discharged home with the above instructions. 4. The patient should follow with pulmonary as an outpatient within a week or 2. Please arrange for it. 5. Follow IgE as an outpatient. 6. She may return to work in a week. Thank you, will follow as outpatient through the office. Data Medications: Current Inpatient Medications Medications (Trade) Dose Ordered Sig/Radha Route Start Time Stop Time Status Last Admin Dose Admin Enoxaparin Sodium (Lovenox Inj) 40 mg Q24H SQ 10/17/17 09:00 11/16/17 08:59 10/18/17 08:54 40 MG Acetaminophen (Tylenol Tab) 650 mg Q4H PRN PO 10/16/17 22:00 11/15/17 21:59 10/17/17 03:54 650 MG Ondansetron HCl (Zofran Inj) 4 mg Q6H PRN IV 10/16/17 22:00 11/15/17 21:59 Citalopram Hydrobromide (celeXA TAB) 40 mg DAILY PO 10/17/17 09:00 11/16/17 08:59 10/19/17 10:22 40 MG Fexofenadine HCl (Salima Tab) 180 mg DAILY PO 10/17/17 09:00 11/16/17 08:59 10/19/17 10:22 180 MG Montelukast Sodium (Singulair Tab) 10 mg HS PO 10/17/17 21:00 11/16/17 20:59 10/18/17 20:40 10 MG Levalbuterol (Xopenex 1.25MG/ 0.5ML Neb) 1.25 mg Q2R PRN INH 10/16/17 23:00 11/15/17 22:59 10/18/17 06:14 1.25 MG Ketorolac Tromethamine (Toradol Inj) 15 mg Q6H PRN IV 10/16/17 23:45 10/21/17 23:44 10/17/17 00:43 15 MG Ioversol (Optiray 320) 125 ml UD PRN IV 10/17/17 00:00 10/21/17 00:00 Salmeterol Xinafoate/ Fluticasone (Advair Diskus 250/50 Inh) 1 puff BID INH 10/17/17 21:00 11/16/17 20:59 10/19/17 10:21 1 PUFF Levalbuterol (Xopenex 0.63 Mg/ 3 Ml Neb) 0.63 mg Q6R INH 10/18/17 13:00 11/17/17 12:59 10/19/17 07:23 0.63 MG Prednisone (PredniSONE TAB) 50 mg DAILY PO 10/19/17 09:00 11/18/17 08:59 10/19/17 10:22 50 MG Vital Signs: Date Time Temp Pulse Resp B/P (MAP) Pulse Ox O2 Delivery O2 Flow Rate FiO2 10/19/17 11:38 36.8 79 18 134/82 (99) 92 Room Air 10/19/17 10:25 Room Air 10/19/17 07:23 103 16 96 Room Air 10/19/17 07:02 36.9 91 18 125/80 (95) 95 Room Air 10/19/17 04:00 Room Air 10/19/17 03:17 36.6 98 18 121/69 (86) 91 Room Air 10/19/17 02:09 91 16 97 Room Air 10/19/17 00:00 Room Air 10/18/17 23:39 36.5 84 19 126/79 (95) 91 Room Air 10/18/17 22:23 95 Room Air 10/18/17 19:20 116 16 94 Room Air 10/18/17 18:52 36.7 93 18 122/79 (93) 93 Nasal Cannula 2.0 10/18/17 18:36 92 Room Air 10/18/17 16:01 Nasal Cannula 2.0 10/18/17 14:41 36.6 97 18 121/76 (91) 94 Nasal Cannula 2.0 10/18/17 14:04 84 16 98 Nasal Cannula 2.0 10/18/17 12:30 Nasal Cannula 2.0 Laboratory Results: Last 24 Hours Test 10/18/17 16:32 10/18/17 20:25 10/19/17 05:57 Bedside Glucose 111 mg/dl 162 mg/dl White Blood Count 17.69 K/uL Red Blood Count 4.91 M/uL Hemoglobin 14.1 g/dL Hematocrit 43.9 % Mean Corpuscular Volume 89.4 fL Mean Corpuscular Hemoglobin 28.7 pg Mean Corpuscular Hemoglobin Concent 32.1 g/dl Platelet Count 331 K/uL Mean Platelet Volume 10.1 fL Neutrophils (%) (Auto) 87.2 % Lymphocytes (%) (Auto) 6.5 % Monocytes (%) (Auto) 5.3 % Eosinophils (%) (Auto) 0.0 % Basophils (%) (Auto) 0.1 % Neutrophils # (Auto) 15.43 K/uL Lymphocytes # (Auto) 1.15 K/uL Monocytes # (Auto) 0.94 K/uL Eosinophils # (Auto) 0.00 K/uL Basophils # (Auto) 0.01 K/uL RDW Standard Deviation 42.1 fL RDW Coefficient of Variation 12.7 % Immature Granulocyte % (Auto) 0.9 % Immature Granulocyte # (Auto) 0.16 K/uL Sodium Level 136 mmol/L Potassium Level 4.2 mmol/L Chloride Level 105 mmol/L Carbon Dioxide Level 24 mmol/L Anion Gap 7.0 mmol/L Blood Urea Nitrogen 14 mg/dl Creatinine 0.64 mg/dl Est Creatinine Clear Calc Drug Dose 124.7 ml/min Estimated GFR () 147.8 Estimated GFR (Non- 127.6 BUN/Creatinine Ratio 21.8 Random Glucose 119 mg/dl Calcium Level 9.0 mg/dl Phosphorus Level 3.4 mg/dl Magnesium Level 2.4 mg/dl
[2017-10-19] MEDS ORDERED: ADVIN50050 INH (13:09)
--- NOTE | 2017-10-19 15:28 | Progress Note ---
Medicine Progress Note Date & Time of Visit: Oct 19, 2017 at 15:22. Subjective seen resting in bed, comfortable states she feels much better no dyspnea, no cough ambulating with no problems, o2 sats > 90% states she is ready and would like to be discharged Objective Last 8 Hrs Date Time Temp Pulse Resp B/P (MAP) Pulse Ox O2 Delivery O2 Flow Rate FiO2 10/19/17 15:19 36.6 97 18 130/83 (99) 95 Room Air 10/19/17 14:12 109 16 95 Room Air 10/19/17 11:38 36.8 79 18 134/82 (99) 92 Room Air 10/19/17 10:25 Room Air 10/19/17 07:23 103 16 96 Room Air Physical Exam: General- oriented x 3, not in distress, speaks in sentences with no effort Eyes- anicteric Neck- supple, no JVD Lungs- clear breath sounds bilaterally, no rales/wheezes Heart- regular rhythm; no murmur, normal rate Abdomen- normal bowel sounds, soft, nontender Extremities- no pretibial edema, no calf tenderness Neuro- alert, oriented x 3; no gross focal deficits Skin- warm & dry Laboratory Results: Last 24 Hours Test 10/18/17 16:32 10/18/17 20:25 10/19/17 05:57 Bedside Glucose 111 mg/dl 162 mg/dl White Blood Count 17.69 K/uL Red Blood Count 4.91 M/uL Hemoglobin 14.1 g/dL Hematocrit 43.9 % Mean Corpuscular Volume 89.4 fL Mean Corpuscular Hemoglobin 28.7 pg Mean Corpuscular Hemoglobin Concent 32.1 g/dl Platelet Count 331 K/uL Mean Platelet Volume 10.1 fL Neutrophils (%) (Auto) 87.2 % Lymphocytes (%) (Auto) 6.5 % Monocytes (%) (Auto) 5.3 % Eosinophils (%) (Auto) 0.0 % Basophils (%) (Auto) 0.1 % Neutrophils # (Auto) 15.43 K/uL Lymphocytes # (Auto) 1.15 K/uL Monocytes # (Auto) 0.94 K/uL Eosinophils # (Auto) 0.00 K/uL Basophils # (Auto) 0.01 K/uL RDW Standard Deviation 42.1 fL RDW Coefficient of Variation 12.7 % Immature Granulocyte % (Auto) 0.9 % Immature Granulocyte # (Auto) 0.16 K/uL Sodium Level 136 mmol/L Potassium Level 4.2 mmol/L Chloride Level 105 mmol/L Carbon Dioxide Level 24 mmol/L Anion Gap 7.0 mmol/L Blood Urea Nitrogen 14 mg/dl Creatinine 0.64 mg/dl Est Creatinine Clear Calc Drug Dose 124.7 ml/min Estimated GFR () 147.8 Estimated GFR (Non- 127.6 BUN/Creatinine Ratio 21.8 Random Glucose 119 mg/dl Calcium Level 9.0 mg/dl Phosphorus Level 3.4 mg/dl Magnesium Level 2.4 mg/dl Assessment & Plan STATUS ASTHMATICUS resolved - CT chest: RUL infiltrate possible mucus per Pulmonary - Wheezing resolved given Solumedrol, Xopenex scheduled d/c antibiotics per Pulm (procalcitonin normal) - discharge on Symbricor 160 2puffs bid Prednisone slow taper starting at 50mg daily - ff up with Pulmonary this week ff up with PCP on Fri PNEUMOMEDIASTINUM - no further interventions at this time per Pulm monitor - PRN analgesics EKG CHANGES -Inferior T-wave changes noted -Likely due to tachycardia - repeat EKG sinus tach ff up echo essentially normal DVT PROPHYLAXIS -SQ Lovenox DISPOSITION d/c home ff up with Pulmonary this week ff up with PCP on Fri Current Inpatient Medications: Current Inpatient Medications Medications (Trade) Dose Ordered Sig/Radha Route Start Time Stop Time Status Last Admin Dose Admin Enoxaparin Sodium (Lovenox Inj) 40 mg Q24H SQ 10/17/17 09:00 11/16/17 08:59 10/18/17 08:54 40 MG Acetaminophen (Tylenol Tab) 650 mg Q4H PRN PO 10/16/17 22:00 11/15/17 21:59 10/17/17 03:54 650 MG Ondansetron HCl (Zofran Inj) 4 mg Q6H PRN IV 10/16/17 22:00 11/15/17 21:59 Citalopram Hydrobromide (celeXA TAB) 40 mg DAILY PO 10/17/17 09:00 11/16/17 08:59 10/19/17 10:22 40 MG Fexofenadine HCl (Salima Tab) 180 mg DAILY PO 10/17/17 09:00 11/16/17 08:59 10/19/17 10:22 180 MG Montelukast Sodium (Singulair Tab) 10 mg HS PO 10/17/17 21:00 11/16/17 20:59 10/18/17 20:40 10 MG Levalbuterol (Xopenex 1.25MG/ 0.5ML Neb) 1.25 mg Q2R PRN INH 10/16/17 23:00 11/15/17 22:59 10/18/17 06:14 1.25 MG Ketorolac Tromethamine (Toradol Inj) 15 mg Q6H PRN IV 10/16/17 23:45 10/21/17 23:44 10/17/17 00:43 15 MG Ioversol (Optiray 320) 125 ml UD PRN IV 10/17/17 00:00 10/21/17 00:00 Levalbuterol (Xopenex 0.63 Mg/ 3 Ml Neb) 0.63 mg Q6R INH 10/18/17 13:00 11/17/17 12:59 10/19/17 14:12 0.63 MG Prednisone (PredniSONE TAB) 50 mg DAILY PO 10/19/17 09:00 11/18/17 08:59 10/19/17 10:22 50 MG Salmeterol Xinafoate/ Fluticasone (Advair Diskus 500/50 Inh) 1 puff BID INH 10/19/17 21:00 11/18/17 20:59
[2017-10-19] MEDS ORDERED: SYMIN INH (15:33)
[2017-10-19] MEDS ORDERED: PRED10TA PO (15:33)
--- NOTE | 2017-10-19 15:38 | Discharge Instructions ---
Discharge Instructions Date of Service Oct 19, 2017. Admission Reason for Admission: Asthma Exacerbation Discharge Discharge Diagnosis / Problem: ASTHMA EXACERBATION Discharge Goals Goal(s): Diagnostic testing, Therapeutic intervention Activity Recommendations Activity Limitations: as noted below (NO HEAVY EXERTION UNTIL RE-EVALUATED BY PRIMARY CARE PHYSICIAN) Lifting Limitations: until after follow-up appointment Exercise/Sports Limitations: until after follow-up appointment Driving or Machine Use: NO DRIVING UNTIL RE-EVALUATED BY PRIMARY CARE PHYSICIAN . Instructions / Follow-Up Instructions / Follow-Up PLEASE REFER TO YOUR NEW MEDICATION LIST AND FOLLOW INSTRUCTIONS CAREFULLY. CALL YOU PRIMARY CARE PHYSICIAN OR RETURN TO ER IMMEDIATELY IF WITH RECURRENCE OF SYMPTOMS. IF WITH SEVERE SHORTNESS OF BREATH, CALL . FOLLOW UP WITH DR. LINCOLN ON Friday10/24/17 AT 9:45 AM. FOLLOW UP WITH [facility] THIS WEEK. (THE CLINIC WILL BE CALLING YOU FOR THE APPOINTMENT). ADDRESS:[facility] [address] [place] [address]. Please call [phone] if you need to change your appointment time. Current Hospital Diet Patient's current hospital diet: Regular Diet Discharge Diet Recommended Diet: Regular Diet Procedures Procedures Performed: CT SCAN OF THE CHEST Pending Studies Studies pending at discharge: no Medical Emergencies . Who to Call and When: Medical Emergencies: If at any time you feel your situation is an emergency, please call [phone] immediately. . Non-Emergent Contact Non-Emergency issues call your: Primary Care Provider, Switchboard Operator Supervisor Call Non-Emergent contact if: you have a fever, you have any medication questions . . "Provider Documentation" section prepared by Ian Olivares. .
--- NOTE | 2017-10-19 15:53 | Discharge Summary ---
Discharge Summary Date of Service Oct 19, 2017. Discharge Summary Admission Date: Oct 16, 2017 at 21:53 Discharge Date: Oct 19, 2017 Discharge Disposition: Home Principal Diagnosis: STATUS ASTHMATICUS Resolved Secondary Diagnoses/Problems: Please refer to hospital course below. Procedures: CT ANGIOGRAM OF THE CHEST CLINICAL HISTORY: Chest pain and shortness of breath COMPARISON STUDY: 10/31/2016 TECHNIQUE: Following the IV administration of 93 mL of Optiray-320, CT angiogram of the thorax was performed from the thoracic inlet to the lung bases utilizing the pulmonary embolus protocol. Images are reviewed in the axial, sagittal, and coronal planes. IV contrast was administered without complication. MIP imaging was performed. A dose lowering technique was utilized adhering to the principles of ALARA. CT DOSE: 226.62 mGy.cm FINDINGS: No pathologically enlarged axillary mediastinal or hilar lymph nodes were visualized. There was no evidence of thoracic aortic dilatation. There were no pulmonary artery filling defects to indicate acute pulmonary embolism. No pleural effusions are visualized. There is moderately extensive pneumomediastinum. Air extends into the neck. There are groundglass opacities within the right upper lobe, likely inflammatory. No pneumothorax is visualized. IMPRESSION: 1. No evidence of acute pulmonary embolism 2. Moderately extensive pneumomediastinum 3. Right upper lobe groundglass opacities, likely infectious/inflammatory 4. No pleural effusions. No evidence of pneumothorax. Electronically signed by: Shan Carroll M.D. 10/17/2017 6:51 AM Dictated Date/Time: 10/17/2017 6:48 AM CHEST ONE VIEW PORTABLE CLINICAL HISTORY: 21 years-old Female presenting with f/u LLL/pneumoediastium. TECHNIQUE: Portable upright AP view of the chest was obtained. COMPARISON: 10/18/2017. FINDINGS: Cardiomediastinal silhouette normal. Decreased conspicuity of pneumomediastinum. Lungs and pleural spaces clear. Osseous structures normal. Upper abdomen normal. IMPRESSION: 1. Continued decrease conspicuity of pneumomediastinum. The presence of pulmonary interstitial emphysema is better appreciated on CT from 10/17/2017. No focal consolidation. No pneumothorax. Electronically signed by: Keaton Collins M.D. 10/19/2017 7:20 AM Dictated Date/Time: 10/19/2017 7:16 AM ECHO * -- Conclusions -- * Ejection Fraction = 65-70%. * The left ventricular wall motion is normal. * No significant valvular pathology. Consultations: PULMONARY DR. LIANG- [facility] Pending Studies/Follow-Up: PLEASE REFER TO HOSPITAL COURSE BELOW. Medication Reconciliation New Medications: Budesonide/Formoterol Fumarate (Symbicort 160-4.5 Mcg/Act) 60 Puffs/Inhaler Aero 2 PUFFS INH BID for 30 Days, #1 INHA 2 Refills Prednisone Tab (Prednisone) 10 Mg Tab 10 MG PO UD for 17 Days, #55 TAB take 5 tabs po daily x 5 days, then take 4 tabs po daily x 3 days, then take 3 tabs po daily x 3 days, then take 2 tabs po daily x 3 days, then take 1 tab po daily x 3 days, then STOP Continued Medications: Albuterol (Ventolin Hfa) 60 Puffs/5400 Mcg Aers 2 PUFFS INH Q4H PRN for Shortness of Breath Albuterol Sulf (Proventil 0.083% 2.5MG/3ML) 2.5 Mg/3 Ml Nebu 2.5 MG INH Q4 PRN for SOB/Wheezing, EA Citalopram Hydrobromide (Citalopram Hydrobromide) 40 Mg Tab 40 MG PO DAILY Fexofenadine Hcl (Salima Allergy) 180 Mg Tab 180 MG PO DAILY, TAB Montelukast Sodium (Montelukast Sodium) 10 Mg Tab 10 MG PO HS, TAB Discontinued Medications: Mometasone Furoate-Formoterol (Dulera 100/5 Mcg) 1 Aer Aer 1 PUFF INH BID Prednisone Tab (Prednisone) 10 Mg Tab 10 MG PO TAPER UD, TAB Admission Information HPI (per Admitting provider): Patient seen and examined with Dr. Mercado. 21-year-old female who presents to the ER when shortness of breath. Patient reports her symptoms have been going on for approximately the past 2 weeks. She was seen in the outpatient clinic last week and placed on Augmentin and prednisone taper. She was also given a prescription for Symbicort and instructed to stop her Dulera however patient reports that Symbicort was too expensive. Patient reports she was initially improving with the Augmentin and prednisone. However a few days ago the symptoms returned. She reports progressive shortness of breath and dry, harsh cough. She has chest and back pain with coughing and with taking a deep breath. She has had low-grade fevers. She denies abdominal pain, nausea, vomiting, diarrhea. No lightheadedness, dizziness, diaphoresis, or syncopal events. She denies urinary symptoms. In the ED, patient presented with tachycardia in the 130s and visible shortness of breath and audible wheezing. Chest x-ray does not show any pneumonia. WBC 20K. Patient was given IVF and nebulizer treatment. Physical Exam (per Admitting): Physical exam: General: Young female in moderate distress due to respiratory failure Unable to speak complete sentences HEENT: Sclera nonicteric, pupils reactive to light, EOMI Heart: Tachycardic Lungs: Diffuse wheeze in all lung obregon, occasional rales Very poor air entry Abdomen: Soft nontender Neuro: Awake alert oriented 3, no focal neurological deficit Hospital Course STATUS ASTHMATICUS Resolved -Patient presenting with increasing cough, shortness of breath, and wheezing; as an outpatient she was treated with Augmentin and prednisone taper -In the ED, patient tachycardic in mild respiratory distress with audible wheezing - CT chest: RUL infiltrate possible mucus per Pulmonary Negative for Flu - initially admitted to ICU for close monitoring placed on 2 liters o2 via nasal cannula - given Solumedrol and Nebds round the clock discontinued antibiotics per Pulmonary, Pneumonia felt to be unlikely - Wheezing gradually resolved Ig E level ordered, pending - discharge on Symbicort 160 2puffs bid (most affordable for patient with her insurance coverage) Prednisone slow taper starting at 50mg daily PRN albulterol - ff up with [facility] this week needs to follow up closely with Pulmonary and Allergy clinic ff up with PCP on Fri PNEUMOMEDIASTINUM - no further interventions at this time per Pulm will resolve on its own - chest pain resolved - PRN analgesics EKG CHANGES -Inferior T-wave changes noted -Likely due to tachycardia - repeat EKG sinus tach echo essentially normal DISPOSITION d/c home ff up with Pulmonary this week ff up with PCP on Fri Total time spent on discharge = 40 minutes This includes examination of the patient, discharge planning, medication reconciliation, and communication with other providers. Discharge Instructions Discharge Instructions Date of Service Oct 19, 2017. Admission Reason for Admission: Asthma Exacerbation Discharge Discharge Diagnosis / Problem: ASTHMA EXACERBATION Discharge Goals Goal(s): Diagnostic testing, Therapeutic intervention Activity Recommendations Activity Limitations: as noted below (NO HEAVY EXERTION UNTIL RE-EVALUATED BY PRIMARY CARE PHYSICIAN) Lifting Limitations: until after follow-up appointment Exercise/Sports Limitations: until after follow-up appointment Driving or Machine Use: NO DRIVING UNTIL RE-EVALUATED BY PRIMARY CARE PHYSICIAN . Instructions / Follow-Up Instructions / Follow-Up PLEASE REFER TO YOUR NEW MEDICATION LIST AND FOLLOW INSTRUCTIONS CAREFULLY. CALL YOU PRIMARY CARE PHYSICIAN OR RETURN TO ER IMMEDIATELY IF WITH RECURRENCE OF SYMPTOMS. IF WITH SEVERE SHORTNESS OF BREATH, CALL . FOLLOW UP WITH DR. LINCOLN ON Friday10/24/17 AT 9:45 AM. FOLLOW UP WITH [facility] THIS WEEK. (THE CLINIC WILL BE CALLING YOU FOR THE APPOINTMENT). ADDRESS:[facility] [address] [place] [address]. Please call [phone] if you need to change your appointment time. Current Hospital Diet Patient's current hospital diet: Regular Diet Discharge Diet Recommended Diet: Regular Diet Procedures Procedures Performed: CT SCAN OF THE CHEST Pending Studies Studies pending at discharge: no Medical Emergencies . Who to Call and When: Medical Emergencies: If at any time you feel your situation is an emergency, please call [phone] immediately. . Non-Emergent Contact Non-Emergency issues call your: Primary Care Provider, Field Crop Grower Call Non-Emergent contact if: you have a fever, you have any medication questions . . "Provider Documentation" section prepared by Ian Olivares. .
[2017-10-19] MEDS ORDERED: BUDESONIDE/FORMOTEROL FUMARATE 160/4.5 60 PUFFS/INHALER INH ONE (16:15)
[2017-10-19] MEDS ORDERED: FLUTICASONE/SALMETEROL (ADVAIR) 500/50 INH 14 PUFF INH SCH (21:00)
[2017-10-20] MEDS ORDERED: BUDESONIDE/FORMOTEROL FUMARATE 160/4.5 60 PUFFS/INHALER INH SCH (09:00)
== END 2017-10-19 16:30 | disposition home or self-care (01) | DRG 202 ==
LOC: C.EDB 19:49 → C.MSICU 21:53 → ENRESERV 21:57 → C.MED 10-17 15:49
PROVIDERS: ADMIT Hospitalist; ATTEND Internal Medicine
DX: J45.902 Unspecified asthma with status asthmaticus (principal); J96.01 Acute respiratory failure with hypoxia; J18.1 Lobar pneumonia, unspecified organism; J98.2 Interstitial emphysema; R94.31 Abnormal electrocardiogram [ECG] [EKG]; R00.0 Tachycardia, unspecified; F32.9 Major depressive disorder, single episode, unspecified; Z79.899 Other long term (current) drug therapy; Z88.8 Allergy status to other drugs, medicaments and biological substances; Z83.2 Family history of diseases of the blood and blood-forming organs and certain disorders involving the immune mechanism; Z82.49 Family history of ischemic heart disease and other diseases of the circulatory system